=== PATIENT | female | born 1960 | race Caucasian/White ===

== ENCOUNTER 2020-04-30 12:23 | Emergency (ER) | payer OTHER ==
--- OUTSIDE RECORDS SUMMARY | 2020-04-30 13:00 | XMS REPORT | Clinical Summary ---
:1960 Author Organization [facility] Address [address] [place] [address] Care Team Providers Name Role Phone Darek Alves Primary Care Provider Allergies Active Allergy Reactions Severity Noted Date Comments Celecoxib 09/27/2016 Iodine 11/15/2017 Medications Medication Sig Dispensed Refills Start Date End Date Status valGANciclovir Take 450 mg 0 Act zarina (VALCYTE) 450 mg by mouth tablet daily. diphenhydrAMINE Take 2 2 capsule 0 11/15/2017 Act zarina (BENADRYL) 25 mg tablets of 25 capsuleIndications: mg 2 hours Allergy to iodine prior to imaging RED YEAST RICE ORAL Take by 0 Active mouth. aspirin (ECOTRIN) 81 Take 81 mg by 0 Active MG enteric coated mouth daily. tablet ACETAMINOPHEN/DIPHEN Take by 0 Active HYDRAMINE (TYLENOL mouth. PM EXTRA STRENGTH ORAL) levothyroxine Take 150 mcg 0 Act zarina (SYNTHROID, LEVOXYL) by mouth 150 mcg tablet every morning. traMADol (ULTRAM) 50 Take 50 mg by 0 Active mg tablet mouth every 6 (six) hours as needed for moderate pain. clopidogrel (PLAVIX) 0 07/25/2016 Active 75 mg/5 mL suspension clopidogreL (PLAVIX) Take 1 tablet 90 tablet 3 01/01/202012/16 Active 75 mg (75 mg total) 21 tabletIndications: by mouth PAD (peripheral daily. artery disease) ([facility]) calcium Take 1 tablet 0 05/22/20 Discon tinued citrate-vitamin D3 by mouth 2 19 (Patient (CITRACAL+D) 315-200 (two) times a Discharge) mg-unit per tablet day. Active Problems Problem Noted Date PAD (peripheral artery disease) 11/23/2017 Overview: Added automatically from request for lucy waldron [id number] Encounters Date Type Specialty Care Team Description 03/03/2020 Telephone Cardiovascular Gavi Fletcher MA 03/03/2020 Travel 01/01/2020 Telephone Cardiovascular Luciana Hoskins RN 01/01/2020 Orders Only Cardiovascular Luciana Hoskins, PAD (p eripheral artery RN disease) ([facility]) (Primary Dx) 11/04/2019 Telephone Cardiovascular Kacie Amin MA 11/04/2019 Telephone Cardiovascular Luciana Hoskins RN 05/22/2019 Office Visit Cardiovascular Roxana Silveira MD Varicose vei ns of bilateral lower extremities with other complications (Primary Dx); PAD (peripheral artery disease) ([facility]) after 04/30/2019 Family History Medical History Relation Name Comments Diabetes Mother Kari Berman Relation Name Status Comments Mother Kari Berman Alive Social History Tobacco Use Types Packs/Day Years Used Date Former Smoker 0.5 25 Quit: 2014 Smokeless Tobacco: Never Used Alcohol Use Drinks/Week oz/Week Comments Yes social Sex Assigned at Date Recorded Not on file Job Start Date Occupation Industry Not on file Not on file Not on file Travel History Travel Start Travel End No recent travel history available. Last Filed Vital Signs Vital Sign Reading Time Taken Comments Blood Pressure 147/84 05/22/2019 9:13 AM CDT Pulse 63 05/22/2019 9:13 AM CDT Temperature 36.6 C (97.8 F) 05/22/2019 9:13 AM CDT Respiratory Rate - - Oxygen Saturation - - Inhaled Oxygen Concentration - - Weight 98 kg (216 lb) 05/22/2019 9:13 AM CDT Height 170.2 cm (5' 7") 05/22/2019 9:13 AM CDT Body Mass Index 33.83 05/22/2019 9:13 AM CDT Plan of Treatment Date Type Specialty Care Team Description 05/13/2020 Appointment Procedural Cardiology Roxana Silveira MD [address] [place], [place] [address] [phone] 05/13/2020 Office Visit Cardiovascular Roxana Silveira MD [address] [place], [place] [address] [phone] Health Maintenance Due Date Last Done Comments CERVICAL CANCER SCREENING 1980 BREAST CANCER SCREENING 2009 COLONOSCOPY SCREENING 2009 SHINGLES VACCINES (#1) 2009 INFLUENZA VACCINE 05/18/2020 Implants Implanted Type Area Qa Software Tester Device Shelf Model / Identifier Expiration Serial / Date Lot Device Vasclr Clsr Baln Cath 10ml Lkng Syr 6fr 7fr Myn xgrip - [id number] Cardiovascular N/A: CARDINAL 10/17/2019 [id number] / Implanted: Qty: 1 on 11/28/2017 by Roxana Silveira MD at [facility] Implants N/A HEALTHCARE / [id number] Device Vasclr Clsr Baln Cath 10ml Lkng Syr 6fr 7fr Myn xgrip - [id number] Cardiovascular N/A: CARDINAL 09/16/2019 [id number] / Implanted: 04/03/2018 at [facility] (Quantity not on file) Imp lants N/A HEALTHCARE / [id number] Stent Bili Express Ld Prmntd 75cm 8x27mm Metal - [id number] Tammy pheral or N/A: [facility] 06/28/2020 [id number] / Implanted: Qty: 1 on 11/28/2017 by Roxnaa Silveira MD at [facility] Biliary Stents N/A INTERVENTION / VASCULAR LUCY [id number] Catheter Angio Type Caster Ii 5fr 0.038in 65cm Hf Contra-L - [id number] Surgical N/A: [facility] 07/17/2019 [id number] / Implanted: 11/28/2017 at [facility] (Quantity not on file) Imp lants; N/A INTERVENTION / Expanders; VASCULAR LUCY [id number] Extenders; Surgical Wires Stent Zilver Drug Eluted 6fr 8 X 60mm .035in - [id number] Surgic al Stents N/A: [facility] PERIPHERAL 06/04/2019 [id number] / Implanted: Qty: 1 on 04/03/2018 by Roxana Silveira MD at [facility] N/A INTERVENTION / [id number] Catheter Loss Claim Clerk [place] 6fr X 75cm 8x40mm 0.035in H-Pres [place] [id number] / Implanted: Qty: 1 on 04/03/2018 by Roxana Silveira MD at [facility] SCIENTIFIC/TAMMY / PHERAL VASCULAR (MEDI-TECH) Procedures Procedure Name Priority Date/Time Associated Diagnosis Comme nts US DUPLEX VENOUS Routine 07/03/2019 9:32 Varicose veins of Re sults for this LOWER EXTREMITY AM CDT bilateral lower procedure are in REFLUX BILATERAL extremities with other t he results complications section. US ANKLE BRACHIAL Routine 05/22/2019 9:22 PAD (peripheral art claudia Results for this INDEX AM CDT disease) ([facility]) procedure are in the results section. US DUPLEX AORTA Routine 05/22/2019 9:22 PAD (peripheral arter y Results for this INFERIOR VENA CAVA AM CDT disease) ([facility]) procedu re are in LIMITED the results section. after 04/30/2019 Results Us duplex venous lower extremity reflux (07/03/2019 9:32 AM CDT) Specimen Narrative Performed At [facility] Lower Extremity Toni ous Insufficiency Report [address], [address], [place] [address] Pat.Name: LONG VALENTINO Pat.ID: [id number] .Date: 07/03/2019 Refer.MD: ROXANA SILVEIRA MD Exam Time: 7:54:00 AM Study Type:V enous Reflux Report Age: 10 1960,58Y Sex: FEMALE Sonogrphr: Gela Arrington RN, RVT Echo Event ID:[id number] Order ID: [id number] Reason for Study:Bilateral lower extremi ty small reticular veins proximal posterior calf and at right med ial ankle area. Legs hurt all the time per pt. Ankle edema on and off. Has used compression but not worn consistently as they do not fit pro perly per pt. Race: C SUMMARY: DUPLEX SCAN OBSERVATIONS The exam was performed with the patient in the steep reverse Trendelenburg position. Hope scale and color Doppler imaging of bilateral lower extremities demonstrates the following: Deep Veins Right Left Valvular reflux CFV Incompetent Competent Normal < or equal to 500 (1500 ms) Abno rmal (Incompetent) 500 ms Femoral mid Competent Competent Profunda Competent Competent Popliteal Competent Competent PT (prox) Competent Competent PT (dist) Competent Competent Peroneal Competent Competent Superficial Veins AAV Competent Compe tent GSV Competent Inc ompetent (at and immediately below the saphenofem oral junction) (0000 ms) (500 ms) GSV Competent Incom petent (thigh) (500 ms) GSV Incompetent Incomp etent (lower leg) (500 ms) (1200 ms) SSV Incompetent Incomp etent (at and immediately below the saphenopop liteal junction) (5900 ms) (600 ms) RIGHT: There are bright echoes in the small saphenous vein in the upper calf partially filling the lumen; there is near-total compressibility (<50% luminal filling). The remaining above visualized veins are compressible with n o evidence of echogenic material within the vein lumen. Color flow and Doppler signals demonstrate valvular reflux in the commo n femoral and mid calf great and small saphenou vein. Saphenous relat ed varicosities are not identified. Perforating veins are not seen. LEFT: There are bright echoes in the small saphenous vein in the upper calf partially filling the lumen; there is near-total compressibility (<50% luminal filling). The remaining above visualized veins are compressible with no evidence of echogenic material within the vein lumen. Colorflow and Doppler si gnals demonstrate valvular reflux in the great saphenous vein at th e sapheno-femoral junction and just below the junction and in the mid c leobardo great and small saphenous vein. Non-thrombosed saphenous related varicosities are not identified. Perforating veins are not se en. PRELIMINARY FINDINGS: 1. 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 2. Valvular reflux, right common femor al and great saphenous (below) knee vein. 3. Valvular reflux, left great sapheno us vein at and just below the sapheno-femroal junction, and mid calf g reat and small saphenous vein. 4. Doppler signals obtained in the bi lateral common femoral vein are mildly pulsatile on the right compared t o the left. 5. See table and diagram for vein kym urements. PHYSICIAN INTERPRETATION: Chronic partial thrombosis of the proxim al calf small saphenous vein bilaterally. Venous reflux in bilateral lower extremity veins. Vein measurements as shown. FINDINGS: MEASUREMENTS: REFLUX Left CFV CFV Reflux Time 0.5 sec Right CFV CFV Reflux Time 1.5 sec ZULEIMAEINAlfred Left Prox Thigh Prox Thigh GSV 0.5 cm Right Prox Thigh Prox Thigh GSV 0.5 cm Left Distal Calf SSV Dist Calf LSV A 0.3 cm Right Calf Dist SSV Dist Calf LSV A 0.2 cm Left Mid Calf Mid Calf GSV AP 0.3 cm Mid Calf LSV AP 0.2 cm Right Mid Calf Mid Calf GSV AP 0.2 cm Mid Calf LSV AP 0.3 cm Left Mid Thigh Mid Thigh GSV A 0.4 cm Right Mid Thigh Mid Thigh GSV A 0.3 cm Left Popliteal Fossa Popliteal Fossa 0.5 cm Right Popliteal Fossa Popliteal Fossa 0.4 cm Left Knee Knee GSV AP 0.2 cm Right Knee Knee GSV AP 0.2 cm Left Prox Calf Prox Calf LSV A 0.2 cm Prox Calf GSV A 0.3 cm Right Prox Calf Prox Calf LSV A 0.2 cm Prox Calf GSV A 0.2 cm Left Dist Thigh Dist Thigh GSV 0.2 cm Right Dist Thigh Dist Thigh GSV 0.2 cm Left Dist Calf Dist Calf GSV A 0.2 cm Right Dist Calf Dist Calf GSV A 0.2 cm Left SFJ SFJ GSV AP 0.6 cm Right SFJ SFJ GSV AP 0.6 cm Signed 07/10/2019 09:16 PM Navjot Vera MD Procedure Note Interface, Radiology Results In - 2018 9:17 PM CDT [facility] Lower Extremity Venous Ins ufficiency Report [address], [address], [place] [address] Pat.Name: LONG VALENTINO Pat.I D: [id number] .Date: 07/03/2019 Refer .MD: ROXANA SILVEIRA MD Exam Time: 7:54:00 AM Study Type:Venous Reflux Report Age: 10 1960,58Y Sex: FEMALE Sonogrphr: Gela Arrington RN, RVT Echo Event ID:[id number] Order ID: [id number] Reason for Study:Bilateral lower extremi ty small reticular veins proximal posterior calf and at right med ial ankle area. Legs hurt all the time per pt. Ankle edema on and off. Has used compression but not worn consistently as they do not fit pro perly per pt. Race: C SUMMARY: DUPLEX SCAN OBSERVATIONS The exam was performed with the patient in the steep reverse Trendelenburg position. Hope scale and color Doppler imaging of bilateral lower extremities demonstrates the following: Deep Veins Right Left Valvular reflux CFV Incompetent Competent Normal < or equal to 500 (1500 ms) Abn ormal (Incompetent) 500 ms Femoral mid Competent Competent Profunda Competent Competent Popliteal Competent Competent PT (prox) Competent Competent PT (dist) Competent Competent Peroneal Competent Competent Superficial V eins AAV Competent Competent GSV Competent Incompetent (at and immediately below the saphenofem oral junction) (0000 ms) (500 ms) GSV Competent Incompetent (thigh) (500 ms) GSV Incompetent Incompetent (lower leg) (500 ms) (12 00 ms) SSV Incompetent Incompetent (at and immediately below the saphenopop liteal junction) (5900 ms) (600 ms) RIGHT: There are bright echoes in the s mall saphenous vein in the upper calf partially filling the lumen; there is near-total compressibility (<50% luminal filling). The remaining above visualized veins are compressible with n o evidence of echogenic material within the vein lumen. Colorf low and Doppler signals demonstrate valvular reflux in the commo n femoral and mid calf great and small saphenou vein. Saphenous relat ed varicosities are not identified. Perforating veins are not s een. LEFT: There are bright echoes in the s mall saphenous vein in the upper calf partially filling the lumen; there is near-total compressibility (<50% luminal filling). The remaining above visualized veins are compressible with no evidence of echogenic material within the vein lumen. Colorflow and Doppler si gnals demonstrate valvular reflux in the great saphenous vein at th e sapheno-femoral junction and just below the junction and in the mid c leobardo great and small saphenous vein. Non-thrombosed saphenous related varicosities are not identified. Perforating veins are not se en. PRELIMINARY FINDINGS: 1. Chronic partial thrombosis of the pr oximal calf small saphenous vein bilaterally. 2. Valvular reflux, right common femora l and great saphenous (below) knee vein. 3. Valvular reflux, left great saphenou s vein at and just below the sapheno-femroal junction, and mid calf g reat and small saphenous vein. 4. Doppler signals obtained in the alesia ateral common femoral vein are mildly pulsatile on the right compared t o the left. 5. See table and diagram for vein measu rements. PHYSICIAN INTERPRETATION: Chronic partial thrombosis of the proxim al calf small saphenous vein bilaterally. Venous reflux in bilateral lower extremity veins. Vein measurements as shown. FINDINGS: MEASUREMENTS: REFLUX Left CFV CFV Reflux Time 0.5 sec Right CFV CFV Reflux Time 1.5 sec LEVEINS Left Prox Thigh Prox Thigh GSV 0.5 cm Right Prox Thigh Prox Thigh GSV 0.5 cm Left Distal Calf SSV Dist Calf LSV A 0.3 cm Right Calf Dist SSV Dist Calf LSV A 0.2 cm Left Mid Calf Mid Calf GSV AP 0.3 cm Mid Calf LSV AP 0.2 cm Right Mid Calf Mid Calf GSV AP 0.2 cm Mid Calf LSV AP 0.3 cm Left Mid Thigh Mid Thigh GSV A 0.4 cm Right Mid Thigh Mid Thigh GSV A 0.3 cm Left Popliteal Fossa Popliteal Fossa 0.5 cm Right Popliteal Fossa Popliteal Fossa 0.4 cm Left Knee Knee GSV AP 0.2 cm Right Knee Knee GSV AP 0.2 cm Left Prox Calf Prox Calf LSV A 0.2 cm Prox Calf GSV A 0.3 cm Right Prox Calf Prox Calf LSV A 0.2 cm Prox Calf GSV A 0.2 cm Left Dist Thigh Dist Thigh GSV 0.2 cm Right Dist Thigh Dist Thigh GSV 0.2 cm Left Dist Calf Dist Calf GSV A 0.2 cm Right Dist Calf Dist Calf GSV A 0.2 cm Left SFJ SFJ GSV AP 0.6 cm Right SFJ SFJ GSV AP 0.6 cm Signed 07/10/2019 09:16 PM Navjot Vera MD Performing Organization Address City/State/Zipcode Phone Number [facility] [address] duplex aorta or inferior vena cava limited (05/22/2019 9:22 AM CDT) Specimen Narrative Performed At [facility] Duplex Report [address] [id number] Pat.Name: LONG VALENTINO Pat.ID: [id number] .Date: 05/22/2019 Refer.MD: ROXANA SILVEIRA MD Exam Time: 8:16:00 AM Study Type:A bd. Aorta-Iliac Age: 10 1960,58Y Sex: FEMALE Sonogrphr: Maria Isabel Murphy RVT CPT - 4: 939 79 Echo Event ID:[id number] Order ID: [id number] Reason for Study:Follow up status post P TA and stenting of iliac arteries. Race: C SUMMARY: AORTA: The abdominal aorta and iliac a rteries are visualized with difficulty due to overlying bowel gas. The aorta measures approximately 2.6 x 2.5 cm diameter. H austen plaque is noted. Color flow and Doppler signals are present thr oughout all visualized arteries. The celiac, sma, and hypogastr ic arteries are not visualized at this time. Color flow disturbance and elevated velocities are noted in the right external iliac artery. A st ent is visualized in the right common iliac and external iliac arteries and left mid external iliac artery. Unable to identify stent in the proximal and distal segment of left external iliac artery. PSV cm/sec Artery Location Aorta Proximal 96 Mid 74 Distal 74 Celiac Proximal Not Visualized SMA Proximal Not Visualized Right Left Common iliac Proximal 160 (STENT) 141 Mid 150 (STENT) 155 Distal 200 (STENT) 216 External iliac Proximal 323 (STENT) 203 Mid 178 (STENT) 167 (STENT) Distal 151 (STENT) 194 Hypogastric Proximal Not Visualized Not Visualized Patient seen in clinic today by Dr. Silveira. IMPRESSION: 1. The abdominal aorta measures appro ximately 2.6 x 2.5 cm diameter 2. >50% stenosis in the right proxima l external iliac artery stent (ratio 1.6) 3. < 50% stenosis in the left distal co mmon iliac artery (ratio 1.4) 4. See same day DONNIE/TBI 5. Technically difficult study due to o verlying bowel gas. PHYSICIAN INTERPRETATION: 1. The abdominal aorta measures appro ximately 2.6 x 2.5 cm diameter 2. >50% stenosis in the right proxima l external iliac artery stent (ratio 1.6) 3. < 50% stenosis in the left distal co mmon iliac artery (ratio 1.4) Signed 05/23/2019 11:27 PM Roxana Silveira MD Procedure Note Interface, Radiology Results In - 2018 11:32 PM CDT [facility] Aorta-iliac Duplex Report [address], [place] [address] Pat.Name: LONG VALENTINO Pat.I D: [id number] .Date: 05/22/2019 Refer .MD: ROXANA SILVEIRA MD Exam Time: 8:16:00 AM Study Type:Abd. Aorta-Iliac Age: 10 1960,58Y Sex: FEMALE Sonogrphr: Maria Isabel Murphy RVT CPT - 4: 11984 Echo Event ID:[id number] Order ID: [id number] Reason for Study:Follow up status post P TA and stenting of iliac arteries. Race: C SUMMARY: AORTA: The abdominal aorta and iliac ar teries are visualized with difficulty due to overlying bowel gas. The aorta measures approximately 2.6 x 2.[address] plaque is noted. Color flow and Doppler signals are present thr oughout all visualized arteries. The celiac, sma, and hypogastr ic arteries are not visualized at this time. Color flow disturbance and elevated velocities are noted in the right external iliac artery. A st ent is visualized in the right common iliac and external iliac arteries and left mid external iliac artery. Unable to identify stent in the proximal and distal segment of left external iliac artery. PSV cm/sec Artery Location Aorta Proximal 96 Mid 74 Distal 74 Celiac Proximal Not Visualized SMA Proximal Not Visualized Right Left Common iliac Proximal 160 (STENT) 14 1 Mid 150 (STENT) 155 Distal 200 (STENT) 216 External iliac Proximal 323 (STENT) 203 Mid 178 (STENT) 167 (STENT) Distal 151 (STENT) 194 Hypogastric Proximal Not Visualized Not Visualized Patient seen in clinic today by Dr. Silveira. IMPRESSION: 1. The abdominal aorta measures approx imately 2.6 x 2.5 cm diameter 2. >50% stenosis in the right proximal external iliac artery stent (ratio 1.6) 3. < 50% stenosis in the left distal co mmon iliac artery (ratio 1.4) 4. See same day DONNIE/TBI 5. Technically difficult study due to o verlying bowel gas. PHYSICIAN INTERPRETATION: 1. The abdominal aorta measures approx imately 2.6 x 2.5 cm diameter 2. >50% stenosis in the right proximal external iliac artery stent (ratio 1.6) 3. < 50% stenosis in the left distal co mmon iliac artery (ratio 1.4) Signed 05/23/2019 11:27 PM Roxana Silveira MD Performing Organization Address City/State/Zipcode Phone Number [facility] [address] [phone] ankle brachial index (05/22/2019 9:22 AM CDT) Specimen Narrative Performed At [facility] Lower Extremity Art erial Physiologic Report [address] [id number] Pat.Name: LONG VALENTINO Pat.ID: [id number] .Date: 05/22/2019 Refer.MD: ROXANA SILVEIRA MD Exam Time: 8:45:00 AM Study Type:P hysiologic Leg Age: 10 1960,58Y Sex: FEMALE Sonogrphr: Maria Isabel Murphy RVT CPT - 4: 939 22 Echo Event ID:[id number] Order ID: [id number] Reason for Study:Follow up status post P TA and stenting of iliac arteries. Race: C SUMMARY: DOPPLER SIGNALS / ANALOG WAVEFORMS: ANALOG WAVEFORMS ARTERY RIGHT LEFT Posterior Tibial Triphasic Triphasic Dorsalis Pedis Triphasic Triphasic Patient seen in clinic today by Dr. Silveira. PRELIMINARY FINDINGS: 1. Resting ankle brachial indices sug gest mild lower extremity arterial occlusive disease, bilaterally. 2. Toe brachial index suggests normal arterial perfusion, bilaterally. 3. In comparison to study done 11/21/18 A BIs changed from normal to mild arterial disease. 4. See same day aorta duplex PHYSICIAN INTERPRETATION: 1. Resting ankle brachial indices sug gest mild lower extremity arterial occlusive disease, bilaterally. 2. Toe brachial index suggests normal arterial perfusion, bilaterally. 3. In comparison to study done 11/21/18 A BIs changed from normal to mild arterial disease. MEASUREMENTS: PRESSURES Right Brachial Brach P 153 mmHg Left Brachial Brach P 157 mmHg Right Ankle PT AnklePT P 146 mmHg Left Ankle PT AnklePT P 146 mmHg Right Ankle DP AnkleDP P 139 mmHg Left Ankle DP AnkleDP P 151 mmHg Right Great Toe GreatToe P 126 mmHg Left Great Toe GreatToe P 100 mmHg Right DONNIE PT DONNIE PT 0.93 Left DONNIE PT DONNIE PT 0.93 Right DONNIE DP DONNIE DP 0.885 Left DONNIE DP DONNIE DP 0.962 Right TBI TBI 0.803 Left TBI TBI 0.637 Signed 05/22/2019 11:29 PM Roxana Silveira MD Procedure Note Interface, Radiology Results In - 2018 11:51 PM CDT [facility] Lower Extremity Arterial P hysiologic Report [address] [id number] Pat.Name: LONG VALENTINO Pat.I D: [id number] .Date: 05/22/2019 Refer .MD: ROXANA SILVEIRA MD Exam Time: 8:45:00 AM Study Type:Physiologic Leg Age: 10 1960,58Y Sex: FEMALE Sonogrphr: Maria Isabel Murphy RVT CPT - 4: 69914 Echo Event ID:[id number] Order ID: [id number] Reason for Study:Follow up status post P TA and stenting of iliac arteries. Race: C SUMMARY: DOPPLER SIGNALS / ANALOG WAVEFORMS: ANALOG WAVEFORMS ARTERY RIGHT LEFT Posterior Tibial Triphasic Triphasic Dorsalis Pedis Triphasic Triphasic Patient seen in clinic today by Dr. Silveira. PRELIMINARY FINDINGS: 1. Resting ankle brachial indices sugg est mild lower extremity arterial occlusive disease, bilaterally. 2. Toe brachial index suggests normal arterial perfusion, bilaterally. 3. In comparison to study done 11/21/18 A BIs changed from normal to mild arterial disease. 4. See same day aorta duplex PHYSICIAN INTERPRETATION: 1. Resting ankle brachial indices sugg est mild lower extremity arterial occlusive disease, bilaterally. 2. Toe brachial index suggests normal arterial perfusion, bilaterally. 3. In comparison to study done 11/21/18 A BIs changed from normal to mild arterial disease. MEASUREMENTS: PRESSURES Right Brachial Brach P 153 mmHg Left Brachial Brach P 157 mmHg Right Ankle PT AnklePT P 146 mmHg Left Ankle PT AnklePT P 146 mmHg Right Ankle DP AnkleDP P 139 mmHg Left Ankle DP AnkleDP P 151 mmHg Right Great Toe GreatToe P 126 mmHg Left Great Toe GreatToe P 100 mmHg Right DONNIE PT DONNIE PT 0.93 Left DONNIE PT DONNIE PT 0.93 Right DONNIE DP DONNIE DP 0.885 Left DONNIE DP DONNIE DP 0.962 Right TBI TBI 0.803 Left TBI TBI 0.637 Signed 05/22/2019 11:29 PM Roxana Silveira MD Performing Organization Address City/State[facility] Phone Number [facility] [address] [place] [address] after 04/30/2019 ([place]) [place], [place] [address] 1 Advance Directives For more information, please contact: [phone] Type Date Recorded Patient Coal Sample Tester Explanati on Advance Directives, Living Will and Medical Power of Kitchen Aide
[2020-04-30] MEDS ORDERED: HYDROCODONE/APAP 10/325 TAB ONE (14:07)
--- NOTE | 2020-04-30 14:27 | RAD REPORT ---
EXAM DESCRIPTION: US - Extrem Venous W Compress Davidson - 04/30/2020 2:19 pm CLINICAL HISTORY: PAIN Bilateral leg edema and swelling. COMPARISON: UP LOW EXT ARTERIES MULTI dated 12/08/2013 TECHNIQUE: Real-time sonographic interrogation of the left and right lower extremity deep venous sys tems was performed. FINDINGS: Normal compressibility, flow augmentation, phasic flow and spontaneous flow is identified in both the left and right lower extremity deep venous systems. IMPRESSION: No sonographic evidence of left or right lower extremity deep venous thrombosis.
--- NOTE | 2020-04-30 14:42 | RAD REPORT ---
EXAM DESCRIPTION: US - Lower Extremity Arterial Bilat - 04/30/2020 2:19 pm CLINICAL HISTORY: PAIN Leg pain, claudication COMPARISON: No comparisons TECHNIQUE: Bilateral lower extremity arterial Doppler examination was performed with petey berman FINDINGS: Mild multifocal multisegmental atherosclerosis is present bilaterally. Triphasic waveforms are seen throughout both lower extremity arterial systems to the level of the pos terior tibial arteries bilaterally. Bilateral dorsalis pedis artery is demonstrates monophasic flow which appears mildly blunted. No occlusion or high-grade stenosis evident. IMPRESSION: Mild distal peripheral vascular disease below the level of the ankles. No occlusion identified.
--- NOTE | 2020-04-30 16:22 | EDPHYS ---
Physician Documentation [facility] Name: Serina Valentino Age: 59 yrs Sex: Female : 1960 Arrival Date: 04/30/2020 Time: 12:26 Bed 20 Private MD: Raian Alves H ED Physician Daniel Scott HPI: 04/30 18:56 This 59 yrs old Female presents to ER via Ambulatory with complaints of kdr Possible blood clot. 18:56 The patient presents with pain, that is chronic. The patient has multiple discrete kdr locations on her lower extremities which she reports are tender and swollen. She si concerned that she may have blood clots in he legs. She has had prior arterial stenting in her legs. She had seen Dr. Alves last week and he had given her Lasix which has not resolved the issues. She has no other c/o in the ED. Historical: - Allergies: 12:35 thyroid med; jd3 12:35 Celebrex; jd3 - Home Meds: 12:35 levothyroxine oral [Active]; clopidogrel oral oral [Active]; Aspirin Oral [Active]; red jd3 yeast rice oral oral [Active]; - PSHx: 12:35 stents to bilateral femoral arteries; angioplasty to left leg; jd3 - Immunization history:: Adult Immunizations up to date. - Social history:: Smoking status: Patient/guardian denies using tobacco, the patient reports quitting approximately 2 years ago. ROS: 18:56 Constitutional: Negative for fever, chills, and weight loss, Eyes: Negative for injury, kdr pain, redness, and discharge, ENT: Negative for injury, pain, and discharge, Neck: Negative for injury, pain, and swelling, Cardiovascular: Negative for chest pain, palpitations, and edema, Respiratory: Negative for shortness of breath, cough, wheezing, and pleuritic chest pain, Abdomen/GI: Negative for abdominal pain, nausea, vomiting, diarrhea, and constipation, Back: Negative for injury and pain, : Negative for injury, bleeding, discharge, and swelling, Skin: Negative for injury, rash, and discoloration, Neuro: Negative for headache, weakness, numbness, tingling, and seizure activity. Psych: Negative for depression, anxiety, suicide ideation, homicidal ideation, and hallucinations, Allergy/Immunology: Negative for hives, rash, and allergies, Endocrine: Negative for neck swelling, polydipsia, polyuria, polyphagia, and marked weight changes, Hematologic/Lymphatic: Negative for swollen nodes, abnormal bleeding, and unusual bruising. 18:56 MS/extremity: Positive for pain, Multiple tender and slightly swollen areas without obvious reason or other associated problem or cause. Minimal if any discoloration. Exam: 18:56 Constitutional: This is a well developed, well nourished patient who is awake, alert, kdr and in no acute distress. Head/Face: Normocephalic, atraumatic. Eyes: Pupils equal round and reactive to light, extra-ocular motions intact. Lids and lashes normal. Conjunctiva and sclera are non-icteric and not injected. Cornea within normal limits. Periorbital areas with no swelling, redness, or edema. Neck: Trachea midline, no thyromegaly or masses palpated, and no cervical lymphadenopathy. Supple, full range of motion without nuchal rigidity, or vertebral point tenderness. No Meningismus. Chest/axilla: Normal chest wall appearance and motion. Nontender with no deformity. No lesions are appreciated. Cardiovascular: Regular rate and rhythm with a normal S1 and S2. No gallops, murmurs, or rubs. Normal PMI, no JVD. No pulse deficits. Respiratory: Lungs have equal breath sounds bilaterally, clear to auscultation and percussion. No rales, rhonchi or wheezes noted. No increased work of breathing, no retractions or nasal flaring. Abdomen/GI: Soft, non-tender, with normal bowel sounds. No distension or tympany. No guarding or rebound. No evidence of tenderness throughout. Back: No spinal tenderness. No costovertebral tenderness. Full range of motion. Skin: Warm, dry with normal turgor. Normal color with no rashes, no lesions, and no evidence of cellulitis. Neuro: Awake and alert, GCS 15, oriented to person, place, time, and situation. Cranial nerves II-XII grossly intact. Motor strength 5/5 in all extremities. Sensory grossly intact. Cerebellar exam normal. Normal gait. Psych: Awake, alert, with orientation to person, place and time. Behavior, mood, and affect are within normal limits. 18:56 Skin: Appearance: swelling, that are mild, left lateral ankle. Otherwise difficult to appreciate the lesions that the patient is c/o. Vital Signs: 12:35 BP 160 / 90; Pulse 88; Resp 18 S; Temp 97.0(TE); Pulse Ox 96% on R/A; Weight 97.52 kg jd3 (R); Height 5 ft. 7 in. (170.18 cm) (R); Pain 7/10; 14:00 BP 152 / 87; Pulse 71; Resp 18; Pulse Ox 98% on R/A; ph 16:53 BP 147 / 86; Pulse 76; Resp 19; Temp 97.8; Pulse Ox 99% on R/A; ph 12:35 Body Mass Index 33.67 (97.52 kg, 170.18 cm) jd3 MDM: 16:21 Patient medically screened. kdr 18:56 Data reviewed: vital signs, nurses notes, lab test result(s), radiologic studies. kdr Counseling: I had a detailed discussion with the patient and/or guardian regarding: the historical points, exam findings, and any diagnostic results supporting the discharge/admit diagnosis, lab results, radiology results, the need for outpatient follow up. Physician consultation: Raina Alves DO regarding patient's condition, outpatient follow-up, and will see patient in office, next week, would like medications started, Gabapentin. 04/30 13:44 Order name: Extremity Venous W Compression Davidson; Complete Time: 16:19 kdr 04/30 13:44 Order name: LE Arterial Bilateral; Complete Time: 16:19 kdr Administered Medications: 13:54 Drug: [place] 10 mg-325 mg 1 tabs {Note: rass 0.} Route: PO; ca1 15:47 Follow up: Response: No adverse reaction; Pain is unchanged, physician notified ph Disposition: 04/30/20 16:21 Discharged to Home. Impression: Abrasion, left ankle. - Condition is Stable. - Discharge Instructions: Pain Without a Known Cause, Neuropathic Pain. - Medication Reconciliation Form, Thank You Letter form. - Follow up: Raina Alves DO; When: 2 - 3 days; Reason: If symptoms return, Further diagnostic work-up, Recheck today's complaints, Continuance of care, Re-evaluation by your physician. - Problem is an ongoing problem. - Symptoms have improved. - Notes: Take 1/2 of the Gabapentin 600 mg tab (300mg) twice a day to strart for one week then take 600 mg twice a day. Follow-up with Dr. Alves early next week. Dr. Alves has called in this prescription to your pharmacy. Signatures: Dispatcher [employer] EDMS Daniel Scott MD MD kdr Jeannie Gregg RN RN ph Fernando Marti RN RN jd3 AcLinsey wells RN RN ca1 Corrections: (The following items were deleted from the chart) 16:53 16:21 04/30/2020 16:21 Discharged to Home. Impression: Abrasion, left ankle. Condition ph is Stable. Forms are Medication Reconciliation Form, Thank You Letter, Antibiotic Education, Prescription Opioid Use. Follow up: Raina Alves; When: 2 - 3 days; Reason: If symptoms return, Further diagnostic work-up, Recheck today's complaints, Continuance of care, Re-evaluation by your physician. Problem is an ongoing problem. Symptoms have improved. kdr
--- NOTE | 2020-04-30 16:22 | ER ---
Nurse's Notes [facility] Name: Serina Valentino Age: 59 yrs Sex: Female : 1960 Arrival Date: 04/30/2020 Time: 12:26 Bed 20 Private MD: Raina Alves H Diagnosis: Abrasion, left ankle Presentation: 04/30 12:31 Chief complaint: Patient states: "I think I am having blood clots in both my legs. my jd3 feet are swollen and really hurt as well. I have stents put in both of my femoral arteries and I think they both might be backed up.". Coronavirus screen: At this time, the client does not indicate any symptoms associated with coronavirus-19. Ebola Screen: Patient negative for fever greater than or equal to 101.5 degrees Fahrenheit, and additional compatible Ebola Virus Disease symptoms. Initial Sepsis Screen: Does the patient meet any 2 criteria? No. Patient's initial sepsis screen is negative. Does the patient have a suspected source of infection? No. Patient's initial sepsis screen is negative. Risk Assessment: Do you want to hurt yourself or someone else? Patient reports no desire to harm self or others. Onset of symptoms was April 30, 2020. 12:31 Method Of Arrival: Ambulatory jd3 12:31 Acuity: MAHESH 3 jd3 Historical: - Allergies: 12:35 thyroid med; jd3 12:35 Celebrex; jd3 - Home Meds: 12:35 levothyroxine oral [Active]; clopidogrel oral oral [Active]; Aspirin Oral [Active]; red jd3 yeast rice oral oral [Active]; - PSHx: 12:35 stents to bilateral femoral arteries; angioplasty to left leg; jd3 - Immunization history:: Adult Immunizations up to date. - Social history:: Smoking status: Patient/guardian denies using tobacco, the patient reports quitting approximately 2 years ago. Screenin:26 Abuse screen: Denies threats or abuse. Denies injuries from another. Nutritional ph screening: No deficits noted. Tuberculosis screening: No symptoms or risk factors identified. Fall Risk No fall in past 12 months (0 pts). No secondary diagnosis (0 pts). No IV (0 pts). Ambulatory Aid- Crutches/Cane/Walker (15 pts). Gait- Normal/Bed Rest/Wheelchair (0 pts) Mental Status- Oriented to own ability (0 pts). Total Crum Fall Scale indicates No Risk (0-24 pts). Assessment: 13:30 General: Appears in no apparent distress. comfortable, Behavior is calm, cooperative, ph appropriate for age, Denies fever, feeling ill. Pain: Complains of pain in right leg and left leg. Neuro: Level of Consciousness is awake, alert, obeys commands, Oriented to person, place, time, situation. Respiratory: Airway is patent Respiratory effort is even, unlabored, Respiratory pattern is regular, symmetrical. GI: No signs and/or symptoms were reported involving the gastrointestinal system. Derm: Skin is healthy with good turgor, Skin is pink, warm \\T\\ dry. Musculoskeletal: Circulation, motion, and sensation intact. Range of motion: intact in all extremities. 13:30 Cardiovascular: Capillary refill < 3 seconds in bilateral fingers Patient's skin is ph warm and dry. Edema is absent. 15:00 Reassessment: Patient appears in no apparent distress at this time. Patient and/or ph family updated on plan of care and expected duration. Pain level reassessed. Patient is alert, oriented x 3, equal unlabored respirations, skin warm/dry/pink. 16:50 Reassessment: Patient appears in no apparent distress at this time. Patient and/or ph family updated on plan of care and expected duration. Pain level reassessed. Patient is alert, oriented x 3, equal unlabored respirations, skin warm/dry/pink. Pt d/c home. Vital Signs: 12:35 BP 160 / 90; Pulse 88; Resp 18 S; Temp 97.0(TE); Pulse Ox 96% on R/A; Weight 97.52 kg jd3 (R); Height 5 ft. 7 in. (170.18 cm) (R); Pain 7/10; 14:00 BP 152 / 87; Pulse 71; Resp 18; Pulse Ox 98% on R/A; ph 16:53 BP 147 / 86; Pulse 76; Resp 19; Temp 97.8; Pulse Ox 99% on R/A; ph 12:35 Body Mass Index 33.67 (97.52 kg, 170.18 cm) jd3 ED Course: 12:26 Patient arrived in ED. mr 12:26 Raina Alves DO is Private Physician. mr 12:33 Triage completed. jd3 12:36 Arm band placed on. jd3 12:44 Daniel Scott MD is Attending Physician. kdr 12:53 Jeannie Gregg, RN is Primary Nurse. ph 14:19 US Extremity Venous W Compression Davidson In Process Unspecified. EDMS 14:19 US LE Arterial Bilateral In Process Unspecified. EDMS 15:28 Patient has correct armband on for positive identification. Bed in low position. Call ph light in reach. Side rails up X 1. Pulse ox on. NIBP on. Door closed. Noise minimized. Warm blanket given. 15:46 No provider procedures requiring assistance completed. ph 16:20 Raina Alves DO is Referral Physician. kdr 16:51 Patient did not have IV access during this emergency room visit. ph Administered Medications: 13:54 Drug: [place] 10 mg-325 mg 1 tabs {Note: rass 0.} Route: PO; ca1 15:47 Follow up: Response: No adverse reaction; Pain is unchanged, physician notified ph Outcome: 16:21 Discharge ordered by . kdr 16:50 Discharged to home ambulatory. ph 16:50 Condition: good 16:50 Discharge instructions given to patient, Instructed on discharge instructions, follow up and referral plans. Demonstrated understanding of instructions, follow-up care. 16:53 Patient left the ED. ph Signatures: Dispatcher [employer] EDVT Daniel Scott MD MD [facility] Stephanie Encarnacion mr Jeannie Gregg, RN RN ph Fernando Marti RN RN jLinsey Hawley RN RN ca1 Corrections: (The following items were deleted from the chart) 16:54 13:30 Cardiovascular: Capillary refill < 3 seconds in bilateral fingers toes Patient's ph skin is warm and dry. Edema is 2+ to left midcalf, left ankle, left foot, right midcalf, right ankle and right foot ph
[2020-04-30 17:09] VITALS: BP 147/86; TEMP 97.8; O2SAT 99
== END 2020-04-30 16:53 | disposition home or self-care (01) ==
LOC: ER 12:23
DX: S90.512A Abrasion, left ankle, initial encounter (principal); X58.XXXA Exposure to other specified factors, initial encounter; Z88.8 Allergy status to other drugs, medicaments and biological substances
CPT/HCPCS: 93925; 93970; 99283

== ENCOUNTER 2021-07-29 16:45 | Emergency (ER) | payer BC ==
[2021-07-29] MEDS ORDERED: FENTANYL CITR 100 MCG/2 ML ONE ×3 (17:17→21:33)
[2021-07-29] MEDS ORDERED: ONDANSETRON 4 MG/2 ML VIAL ONE (17:17)
--- NOTE | 2021-07-29 17:39 | RAD REPORT ---
EXAM DESCRIPTION: CT - Head C Spine Cap Wo Con - 07/29/2021 5:16 pm CLINICAL HISTORY: Trauma, head and neck injury. Chest, abdomen and pelvis pain. fall off deck;Pain COMPARISON: No comparisons TECHNIQUE: CT head without contrast. CT cervical spine without contrast with coronal and sagittal reformatted images. CT chest, abdomen and pelvis with coronal and sagittal reformatted images of the spine. All CT scans are performed using dose optimization technique as appropriate and may include automated exposure control or mA/KV adjustment according to patient size. FINDINGS: CT HEAD WITHOUT CONTRAST: No intracranial hemorrhage, hydrocephalus or extra-axial fluid collection. No acute large vascular te rritory infarct. The paranasal sinuses and mastoids are clear. The calvarium is intact. CT CERVICAL SPINE WITHOUT CONTRAST: No fracture or subluxation. The prevertebral soft tissues are normal in thickness.Multilevel cervical spondylosis with varying de grees of neural foraminal narrowing. CT CHEST, ABDOMEN, PELVIS: Thorax: Chest Wall: No abnormal mass Lungs: Paraseptal emphysema. Pleura: No effusions or pneumothorax. Rachel/Mediastinum: No lymphadenopathy. Aorta/Pulmonary Arteries: Unremarkable Heart: Normal size. Multi-vessel coronary artery disease. Abdomen/Pelvis: Liver: No acute abnormality or suspicious lesions. Biliary: No biliary ductal dilatation. Stomach: No significant focal abnormality. Duodenum: No significant focal abnormality. Pancreas: No significant abnormality. Spleen: No significant abnormality. Adrenal: No suspicious lesions. Kidney/ureter: No hydronephrosis. No renal calculi. Retroperitoneum: No retroperitoneal adenopathy. Vascular: Aorto bi-iliac stents Bowel: Diverticulosis without diverticulitis .. Peritoneum: No ascites or free air. Bladder: Grossly unremarkable. Reproductive: No adnexal masses. Bones: Comminuted right proximal humerus fracture. Right first, second, third rib fractures which are minimally displaced. Other: n/a IMPRESSION: 1. Comminuted right proximal humerus fracture and minimally displaced right 1st to 3rd r ib fractures. No pneumothorax . 2. No acute intracranial abnormality or evidence of cervical spine fracture. 3. No acute intra-abdominal abnormality.
--- NOTE | 2021-07-29 17:56 | RAD REPORT ---
EXAM DESCRIPTION: RAD - Clavicle Right - 07/29/2021 5:50 pm CLINICAL HISTORY: PAIN COMPARISON: Humerus Right dated 07/29/2021 FINDINGS: No right clavicle fracture. Comminuted right proximal humerus fracture IMPRESSION: No right clavicle fracture identified.
--- NOTE | 2021-07-29 17:57 | RAD REPORT ---
EXAM DESCRIPTION: RAD - Humerus Right - 07/29/2021 5:50 pm CLINICAL HISTORY: PAIN COMPARISON: No comparisons FINDINGS: Heavily comminuted fracture dislocation of the right proximal humerus. The distal fragment is displaced anteriorly. There is significant inferior displacement of of a large portion of the hum eral head. The greater tuberosity fragment is comminuted. IMPRESSION: Right proximal humeral fracture dislocation with comminution.
[2021-07-29 18:36] LABS: Absolute Lymphocytes (CBC) 1.7 K/uL (0.7-4.9); Basophils % 0.7 % (0-1.3); Hematocrit 39.4 % (36.0-45.0); Lymphocytes % 10.7 % (15.3-44.8); MPV 8.3 fL (7.6-11.3); RBC Red Blood Cell Count 4.11 M/uL (3.86-4.86)
--- NOTE | 2021-07-29 18:43 | EDPHYS ---
Physician Documentation [facility] Name: Seirna Valentino Age: 60 yrs Sex: Female : 1960 Arrival Date: 07/29/2021 Time: 16:46 Bed 8 Private MD: Raina Alves H ED Physician Daniel Scott HPI: 07/29 16:58 This 60 yrs old Female presents to ER via Unassigned with complaints of Fall cp Injury. 16:58 Details of fall: The patient fell from a height, outside deck approximately 1 foot off cp ground, from an upright position, while walking. Onset: The symptoms/episode began/occurred just prior to arrival. 16:58 Associated injuries: The patient sustained right shoulder, decreased range of motion, cp deformity, ecchymosis, painful injury. 16:58 Severity of symptoms: in the emergency department the symptoms are unchanged, despite cp EMS interventions. Historical: - Allergies: 17:13 Celebrex; tw2 19:32 Iodine; df1 - Home Meds: 19:32 aspirin 81 mg oral tab daily [Active]; clopidogrel 75 mg oral tab once daily [Active]; df1 levothyroxine 150 mcg oral tab 1 tab once daily [Active]; red yeast rice Oral [Active]; lisinopril 5 mg Oral tab 1 tab once daily [Active]; Mobic 15 mg oral tab 1 tab once daily [Active]; folic acid daily [Active]; Methotrexate (Anti-Rheumatic) 2.5 mg Oral tab 1 tab once wkly [Active]; acterexata 162 mg IM once per week [Active]; - PMHx: 17:13 RA; Femoral artery stents; tw2 19:32 Hypothyroidism; PVD; df1 - PSHx: 19:32 total Hysterectomy; Bilateral shoulder repair; Thyroidectomy; df1 - Immunization history:: Adult Immunizations. - Social history:: Smoking status: . ROS: 17:00 Constitutional: Negative for body aches, chills, fever, poor PO intake. cp 17:00 Eyes: Negative for injury, pain, redness, and discharge. cp 17:00 Neck: Positive for tenderness, bony tenderness. 17:00 Cardiovascular: Negative for chest pain, palpitations. 17:00 Respiratory: Negative for cough, shortness of breath, wheezing. 17:00 Abdomen/GI: Negative for abdominal pain, nausea, vomiting, and diarrhea. 17:00 MS/extremity: Positive for injury or acute deformity, decreased range of motion, of the right shoulder. 17:00 Neuro: Negative for altered mental status, loss of consciousness, seizure activity, syncope, weakness. 17:00 All other systems are negative. Exam: 17:05 Constitutional: The patient appears in no acute distress, alert, awake, cp non-diaphoretic, non-toxic, well developed, well nourished, obese, uncomfortable. 17:05 Head/Face: Normocephalic, atraumatic. cp 17:05 Eyes: Periorbital structures: appear normal, Pupils: equal, round, and reactive to light and accomodation, Extraocular movements: intact throughout, Conjunctiva: normal, no exudate, no injection, Sclera: no appreciated abnormality, Lids and lashes: appear normal, bilaterally. 17:05 ENT: External ear(s): are unremarkable, Nose: is normal, Mouth: Lips: moist, Oral mucosa: moist, Posterior pharynx: Airway: no evidence of obstruction, patent. 17:05 Neck: C-spine: vertebral tenderness, that is mild, appreciated at C6 and C7, crepitus, is not appreciated, ROM/movement: pain, is not appreciated, limited range of motion, is not appreciated, nuchal rigidity, is not appreciated. 17:05 Chest/axilla: Inspection: normal, Palpation: crepitus, is not appreciated, tenderness, that is moderate, of the right clavicle and anterior aspect of right upper chest. 17:05 Cardiovascular: Rate: normal, Rhythm: regular, Edema: is not appreciated, JVD: is not appreciated. 17:05 Respiratory: the patient does not display signs of respiratory distress, Respirations: normal, no use of accessory muscles, no retractions, labored breathing, is not present, Breath sounds: are clear throughout, no decreased breath sounds, no stridor, no wheezing. 17:05 Abdomen/GI: Inspection: abdomen appears normal, Bowel sounds: active, all quadrants, Palpation: abdomen is soft and non-tender, in all quadrants. 17:05 Back: pain, that is severe, of the right scapular area, ROM is painful, with all movement. 17:05 Musculoskeletal/extremity: Extremities: grossly normal except: noted in the right shoulder: decreased ROM, deformity, ecchymosis, pain, ROM: limited passive range of motion, in the right shoulder, Pulses: noted to be 2+ in the right radial artery and left radial artery, the right shoulder Severe pain noted. 17:05 Skin: injury, abrasion(s), small abrasion noted, of the right lower leg. 17:05 Neuro: Orientation: to person, place \T\ time. Mentation: is normal, Motor: moves all fours, Sensation: is normal. Vital Signs: 16:45 BP 107 / 66; Pulse 89; Resp 18; Temp 98.6(TE); Pulse Ox 95% on R/A; Weight 95.25 kg tw2 (R); Height 5 ft. 7 in. (170.18 cm) (R); Pain 10/10; 18:23 BP 107 / 79; Pulse 67; Resp 17; Pulse Ox 95% on R/A; tw2 18:30 Pain 10/10; tw2 18:30 BP 119 / 47; Pulse 73; Resp 18; Pulse Ox 95% on R/A; Pain 10/10; tw2 19:31 BP 114 / 54; Pulse 66; Resp 18; Pulse Ox 98% on R/A; df1 21:43 BP 114 / 60; Pulse 72; Resp 18; Pulse Ox 99% on R/A; df1 16:45 Body Mass Index 32.89 (95.25 kg, 170.18 cm) tw2 MDM: 16:55 Patient medically screened. cp 17:15 Differential diagnosis: closed head injury, contusion, fracture, multiple trauma. cp 18:40 Physician consultation: Dejon Granados MD was contacted at 18:40, regarding consult, cp patient's condition, after a discussion of the case, a recommendation for transfer for higher level of care is made, for right shoulder replacement surgery. 18:45 Data reviewed: vital signs, nurses notes, lab test result(s), radiologic studies, CT cp scan, plain films. 18:45 Test interpretation: by ED physician or midlevel provider: plain radiologic studies. cp Counseling: I had a detailed discussion with the patient and/or guardian regarding: the historical points, exam findings, and any diagnostic results supporting the discharge/admit diagnosis, lab results, radiology results, the need to transfer to another facility, for higher level of care. 07/29 16:58 Order name: Basic Metabolic Panel cp 07/29 16:58 Order name: CBC with Diff cp 07/29 18:13 Order name: Type and Screen Tube method EDIA 07/29 19:12 Order name: CBC Smear Scan EDIA 07/29 16:58 Order name: XRAY Humerus RIGHT; Complete Time: 18:02 cp 07/29 16:58 Order name: XRAY Clavicle RIGHT; Complete Time: 18:02 cp 07/29 17:07 Order name: Head C Spine Cap Wo Con; Complete Time: 17:56 EDMS 07/29 19:01 Order name: Wrist Left 3 View EDIA 07/29 19:35 Order name: SARS-COV-2 RT PCR EDIA 07/29 16:58 Order name: C-Collar; Complete Time: 16:59 tw2 07/29 16:58 Order name: Labs collected and sent; Complete Time: 20:51 cp 07/29 21:42 Order name: Hardin; Complete Time: 21:42 df1 Administered Medications: 18:15 Drug: Zofran (Ondansetron) 4 mg Route: IVP; Site: left hand; jl7 18:36 Follow up: Response: No adverse reaction tw2 18:17 Drug: fentaNYL (PF) 25 mcg Route: IVP; Site: left hand; jl7 18:30 Follow up: Pain 10/10 Adult; Response: No adverse reaction; Pain is unchanged, tw2 physician notified; RASS: Alert and Calm (0) 18:30 Drug: fentaNYL (PF) 25 mcg {Note: RASS 0.} Route: IVP; Site: left hand; tw2 20:51 Follow up: Response: Pain is decreased df1 19:58 Drug: NS 0.9% 500 ml Route: IV; Rate: bolus; Site: left hand; df1 20:50 Follow up: IV Status: Completed infusion; IV Intake: 500ml df1 20:31 Drug: fentaNYL (PF) 25 mcg Route: IVP; Site: left hand; kc4 20:50 Follow up: Response: Pain is decreased df1 21:30 Follow up: Response: No adverse reaction kc4 20:50 Drug: NS 0.9% 500 ml Route: IV; Rate: 100 ml/hr; Site: left hand; df1 21:48 Follow up: Response: No adverse reaction df1 21:36 Drug: fentaNYL (PF) 25 mcg {Note: Pain increasing, EMS at the bs for transport. 25mcg kc4 Fentanyl administered.} Route: IVP; Site: left hand; 21:47 Follow up: Response: Pain is decreased df1 Disposition Summary: 07/29/21 18:42 Transfer Ordered Transfer Location: [facility] cp Reason: Higher level of care cp Condition: Fair cp Problem: new cp Symptoms: have improved cp Accepting Physician: DR Mobley(07/29/21 21:49) df1 Diagnosis - Displaced Comminuted Fracture and Dislocation Right Proximal Humerus cp - Multiple fractures of ribs, right side, initial encounter for closed fracture cp Forms: - Medication Reconciliation Form cp - SBAR form cp Addendum: 07/31/2021 03:50 Co-signature as Attending Physician, Daniel Scott MD I agree with the assessment and k dr plan of care. Signatures: Dispatcher [employer] EDMS Daniel Scott MD MD [facility] Lazaro Alvarenga PA PA cp Ele Schmitt RN RN tw2 Amy Pacheco RN RN jl7 Alivia Gill kc4 Latia Iyer df1 Corrections: (The following items were deleted from the chart) 07/29 17:07 16:59 Head C Spine CAP W Con+CT.RAD.BRZ ordered. EDMS EDMS 18:13 16:58 TYPE AND SCREEN+BB.LAB.BRZ ordered. EDMS EDMS 19:01 17:58 Wrist Right 3 View+RAD.RAD.BRZ ordered. EDMS EDMS 19:35 19:11 CORONAVIRUS+MR.LAB.BRZ ordered. EDMS EDMS 19:38 17:13 Allergies: thyroid med; tw2 df1 19:38 19:32 Allergies: hypothyroid; df1 df1 19:59 18:42 Doctor cp cp 21:49 19:59 DR Mobley cp df1
--- NOTE | 2021-07-29 18:43 | ER ---
Nurse's Notes [facility] Name: Serina Valentino Age: 60 yrs Sex: Female : 1960 Arrival Date: 07/29/2021 Time: 16:46 Bed 8 Private MD: Raina Alves H Diagnosis: Displaced Comminuted Fracture and Dislocation Right Proximal Humerus;Multiple fractures of ribs, right side, initial encounter for closed fracture Presentation: 07/29 16:45 Chief complaint: EMS states: pt was at home working on a home project on a deck that tw2 was about a foot or foot an a half off the ground. pt landed all her weight on right elbow with possible dislocation noted. pt denies LOC. vs stable. Coronavirus screen: At this time, the client does not indicate any symptoms associated with coronavirus-19. Ebola Screen: Patient denies travel to an Ebola-affected area in the 21 days before illness onset. Initial Sepsis Screen: Does the patient meet any 2 criteria? No. Patient's initial sepsis screen is negative. Does the patient have a suspected source of infection? No. Patient's initial sepsis screen is negative. Risk Assessment: Do you want to hurt yourself or someone else? Patient reports no desire to harm self or others. Onset of symptoms was July 29, 2021. Care prior to arrival: temporary sling to RIGHT arm. 16:45 Method Of Arrival: EMS: [facility] tw2 16:45 Acuity: MAHESH 3 tw2 16:45 Note provider at bedside at this time. tw2 Triage Assessment: 16:45 General: Appears uncomfortable, well groomed, Behavior is calm, cooperative, tw2 appropriate for age. Pain: Complains of pain in right shoulder. Neuro: Level of Consciousness is awake, alert, obeys commands, Oriented to person, place, time, situation. Cardiovascular: Capillary refill < 3 seconds Patient's skin is warm and dry. Respiratory: Airway is patent Respiratory effort is even, unlabored, Respiratory pattern is regular, symmetrical. Musculoskeletal: Circulation, motion, and sensation intact. Range of motion: limited in right shoulder noted to right shoulder area. Historical: - Allergies: 17:13 Celebrex; tw2 19:32 Iodine; df1 - Home Meds: 19:32 aspirin 81 mg oral tab daily [Active]; clopidogrel 75 mg oral tab once daily [Active]; df1 levothyroxine 150 mcg oral tab 1 tab once daily [Active]; red yeast rice Oral [Active]; lisinopril 5 mg Oral tab 1 tab once daily [Active]; Mobic 15 mg oral tab 1 tab once daily [Active]; folic acid daily [Active]; Methotrexate (Anti-Rheumatic) 2.5 mg Oral tab 1 tab once wkly [Active]; acterexata 162 mg IM once per week [Active]; - PMHx: 17:13 RA; Femoral artery stents; tw2 19:32 Hypothyroidism; PVD; df1 - PSHx: 19:32 total Hysterectomy; Bilateral shoulder repair; Thyroidectomy; df1 - Immunization history:: Adult Immunizations. - Social history:: Smoking status: . Screenin:30 Abuse screen: Denies threats or abuse. Denies injuries from another. Nutritional jl7 screening: No deficits noted. Tuberculosis screening: No symptoms or risk factors identified. Fall Risk Fall in past 12 months (25 points). IV access (20 points). Total Crum Fall Scale indicates High Risk Score (45 or more points). Fall prevention measures have been instituted. Side Rails Up X 2 Placed Close to Nursing Station Frequent Obs/Assessments Occuring Family Present and informed to notify staff if the need to leave the bedside As available patient and family educated on Fall Prevention Program and Strategies. Assessment: 16:45 Reassessment: see triage assessment. tw2 17:20 Reassessment: pt in CT at this time. tw2 18:30 Reassessment: provider at bedside at this time giving pt results. tw2 18:39 Reassessment: pt refusing shoulder immobilizer at this time. prefers to stay in the tw2 position that she is in without moving at this time. provider notified. 18:43 Reassessment: xray at bedside at this time. tw2 Vital Signs: 16:45 BP 107 / 66; Pulse 89; Resp 18; Temp 98.6(TE); Pulse Ox 95% on R/A; Weight 95.25 kg tw2 (R); Height 5 ft. 7 in. (170.18 cm) (R); Pain 10/10; 18:23 BP 107 / 79; Pulse 67; Resp 17; Pulse Ox 95% on R/A; tw2 18:30 Pain 10/10; tw2 18:30 BP 119 / 47; Pulse 73; Resp 18; Pulse Ox 95% on R/A; Pain 10/10; tw2 19:31 BP 114 / 54; Pulse 66; Resp 18; Pulse Ox 98% on R/A; df1 21:43 BP 114 / 60; Pulse 72; Resp 18; Pulse Ox 99% on R/A; df1 16:45 Body Mass Index 32.89 (95.25 kg, 170.18 cm) tw2 ED Course: 16:46 Patient arrived in ED. am2 16:46 Raina Alves DO is Private Physician. am2 16:46 Lazaro Alvarenga PA is PHCP. cp 16:46 Daniel Scott MD is Attending Physician. cp 16:58 Ele Schmitt, LUBNA is Primary Nurse. tw2 17:13 Triage completed. tw2 17:13 Arm band placed on. tw2 17:16 Head C Spine Cap Wo Con In Process Unspecified. EDMS 17:30 Patient has correct armband on for positive identification. Placed in gown. Bed in low jl7 position. Call light in reach. Side rails up X 1. Pulse ox on. NIBP on. 17:50 XRAY Humerus RIGHT In Process Unspecified. EDMS 17:50 XRAY Clavicle RIGHT In Process Unspecified. EDMS 17:57 Missed attempt(s): 20 gauge in right antecubital area. Bleeding controlled, band aid tw2 applied, catheter tip intact. Missed attempt(s): 24 gauge in right hand. blood collected. notified LUBNA adrian of need for iv at this time.. Bleeding controlled, band aid applied, catheter tip intact. 18:21 Lab(s) recollected, by me, sent to lab. Inserted saline lock: 24 gauge in left hand, jl7 using aseptic technique. Blood collected. 19:03 Wrist Left 3 View In Process Unspecified. EDMS 19:43 initiated a transfer with Shelby from [facility]. mw2 19:49 SARS-COV-2 RT PCR Sent. kc4 19:52 Primary Nurse role handed off by Ele Schmitt, LUBNA mw2 19:56 administrative approval given by Shelby Watson/ patient has been accepted to [address] to the ER/ Dr. Mobley accepted the patient in transfer/report to be called to [phone]. 19:58 Latia Iyer is Primary Nurse. df1 21:42 Hardin cath inserted, using sterile technique, 16 Fr., by ok, balloon inflated, to df1 gravity drainage. Administered Medications: 18:15 Drug: Zofran (Ondansetron) 4 mg Route: IVP; Site: left hand; jl7 18:36 Follow up: Response: No adverse reaction tw2 18:17 Drug: fentaNYL (PF) 25 mcg Route: IVP; Site: left hand; jl7 18:30 Follow up: Pain 10/10 Adult; Response: No adverse reaction; Pain is unchanged, tw2 physician notified; RASS: Alert and Calm (0) 18:30 Drug: fentaNYL (PF) 25 mcg {Note: RASS 0.} Route: IVP; Site: left hand; tw2 20:51 Follow up: Response: Pain is decreased df1 19:58 Drug: NS 0.9% 500 ml Route: IV; Rate: bolus; Site: left hand; df1 20:50 Follow up: IV Status: Completed infusion; IV Intake: 500ml df1 20:31 Drug: fentaNYL (PF) 25 mcg Route: IVP; Site: left hand; kc4 20:50 Follow up: Response: Pain is decreased df1 21:30 Follow up: Response: No adverse reaction kc4 20:50 Drug: NS 0.9% 500 ml Route: IV; Rate: 100 ml/hr; Site: left hand; df1 21:48 Follow up: Response: No adverse reaction df1 21:36 Drug: fentaNYL (PF) 25 mcg {Note: Pain increasing, EMS at the for transport. 25mcg kc4 Fentanyl administered.} Route: IVP; Site: left hand; 21:47 Follow up: Response: Pain is decreased df1 Intake: 20:50 IV: 500ml; Total: 500ml. df1 Outcome: 18:42 ER care complete, transfer ordered by . cp 21:49 Patient left the ED. df1 Signatures: Dispatcher [employer] EDMS Lazaro Alvarenga PA PA cp Wise, Tara RN RN tw2 Amy Pacheco RN RN jl7 Rosana Gagnon am2 Sherly Anthony mw2 Alivia Gill kc4 Latia Iyer df1 Corrections: (The following items were deleted from the chart) 19:16 18:21 Inserted saline lock: 22 gauge in left hand, using aseptic technique. Blood tw2 collected. jl7 19:35 19:30 CORONAVIRUS+ drawn and sent. df1 EDMS 19:38 17:13 Allergies: thyroid med; tw2 df1 :38 19:32 Allergies: hypothyroid; df1 df1
[2021-07-29 19:12] LABS: Blood Morphology Comment NOT SEEN (NOT SEEN); Platelet Estimate ADEQ; White Blood Cell Scan OK (OK)
--- NOTE | 2021-07-29 19:25 | RAD REPORT ---
EXAM DESCRIPTION: RAD - Wrist Left 3 View - 07/29/2021 7:03 pm CLINICAL HISTORY: PAIN COMPARISON: No comparisons FINDINGS: No acute fracture. Ulnar minus variance. No significant focal degenerative changes. IMPRESSION: No acute osseous abnormality involving the left wrist.
[2021-07-29] MEDS ORDERED: NA CHLORIDE 0.9% 1,000 ML ONE (19:39)
[2021-07-29 22:00] VITALS: TEMP 98.6
[2021-07-29 22:07] VITALS: BP 114/60; O2SAT 99
--- OUTSIDE RECORDS SUMMARY | 2021-07-30 23:05 | XMS REPORT | Continuity of Care Document ---
:1960 Author Organization [facility] t Address [address] [place] [address] [address]. [address] [place] [address] Care Team Providers Name Role Phone EVELYN Attending Clinician Unavailable SELINA Attending Clinician Unavailable RAOUL Attending Clinician Unavailable Problems This patient has no known problems. Allergies, Adverse Reactions, Alerts This patient has no known allergies or adverse reactions. Medications This patient has no known medications. Procedures This patient has no known procedures. Encounters Start End Encounter Admission Attending Care Care Encounter Source Date/Time Date/Time Type Type Clinicians Facility Department ID 2021-05-18 2021-05-18 Outpatient EVELYN [facility] [id number] [place] 00:00:00 00:00:00 [place] [address] [facility] [address] 2021-05-18 2021-05-18 Outpatient IGNACIONelson [facility] [id number] [place] 00:00:00 00:00:00 [place] [address] 2021-02-16 2021-02-16 Outpatient SELINA [facility] [id number] [place] 00:00:00 00:00:00 [place] [address] 2020-11-25 2020-11-25 Outpatient MESFIN SILVEIRA [facility] [id number] [place] 00:00:00 00:00:[address] 2020-11-25 2020-11-25 Outpatient MESFIN SILVEIRA [facility] [id number] [place] 00:00:00 00:00:[address] 2020-11-25 2020-11-25 Outpatient MESFIN SILVEIRA [facility] [id number] [place] 00:00:00 00:00:[address] 2020-11-17 2020-11-17 Outpatient IGNACIONelson [facility] [id number] [place] 00:00:00 00:00:00 [place] [address] 2020-10-06 2020-10-06 Outpatient SELINA, [facility] [id number] [place] 00:00:00 00:00:00 [place] [address] [facility] 2020-08-18 2020-08-18 Outpatient SELINA, [facility] [id number] [place] 00:00:00 00:00:00 [place] [address] 2020-07-28 2020-07-28 Outpatient SELINA [facility] [id number] [place] 00:00:00 00:00:00 [place] [address] 2020-07-28 2020-07-28 Outpatient SELINA [facility] [id number] [place] 00:00:00 00:00:00 [place] [address] 2020-06-10 2020-06-10 Outpatient MESFIN SILVEIRA [facility] [id number] [place] 00:00:00 00:00:[address] 2020-05-27 2020-05-27 Outpatient MESFIN SILVEIRA [facility] [id number] [place] 00:00:00 00:00:[address] 2020-05-21 2020-05-21 Outpatient MESFIN SILVEIRA [facility] [id number] [place] 00:00:00 00:00:[address] Results This patient has no known results.
== END 2021-07-29 21:49 | disposition short-term general hospital (02) ==
LOC: ER 16:45
DX: S42.201A Unspecified fracture of upper end of right humerus, initial encounter for closed fracture (principal); S22.41XA Multiple fractures of ribs, right side, initial encounter for closed fracture; W17.89XA Other fall from one level to another, initial encounter; E03.9 Hypothyroidism, unspecified; Z95.828 Presence of other vascular implants and grafts; Z79.82 Long term (current) use of aspirin; Z88.8 Allergy status to other drugs, medicaments and biological substances; Z20.822 Contact with and (suspected) exposure to COVID-19
CPT/HCPCS: 96361; 85025; 80048; 36415; 86900; 86850; 86901; 70450; 71250; 72125; 73060; 73110; 73000; 51702; 96375; 96374; 99284; U0003; J3010 ×3; J7030; J2405

== ENCOUNTER 2023-12-09 15:05 | Observation (INO) | payer BC ==
[2023-12-09] MEDS ORDERED: ONDANSETRON 4 MG/2 ML VIAL ONE (15:54)
[2023-12-09] MEDS ORDERED: NA CHLORIDE 0.9% 1,000 ML ONE (15:55)
[2023-12-09] MEDS ORDERED: MORPHINE 4 MG/ML SYR ONE (15:55)
[2023-12-09 16:12] LABS: Absolute Basophils 0.1 K/uL (0-0.5); Absolute Lymphocytes (CBC) 0.9 K/uL (0.7-4.9); Absolute Monocytes 0.6 K/uL (0.1-1.3); Absolute Neutrophil 9.6 K/uL (1.8-8.0); Basophils % 0.5 % (0-1.3); Eosinophils % 0.1 % (0-4.4); Hematocrit 39.6 % (36.0-45.0); Hemoglobin 13.2 g/dL (12.0-15.0); Lymphocytes % 8.2 % (15.3-44.8); MCH 31.6 pg (27.0-35.0); MCHC 33.4 g/dL (32.0-36.0); MCV 94.7 fL (80-100); MPV 8.7 fL (7.6-11.3); Monocytes % 5.7 % (3.3-12.3); Neutrophils % 85.5 % (41.7-73.7); Platelets 247 thou/uL (152-406); RBC Red Blood Cell Count 4.18 M/uL (3.86-4.86); Red Cell Distribution Width 17.1 % (12.1-15.2)
[2023-12-09 16:24] LABS: Albumin 3.5 g/dL (3.4-5.0); Albumin/Globulin Ratio 0.9 (1.1-1.8); Anion Gap 9.6 mEq/L (5.0-15.0); Bilirubin Total 0.5 mg/dL (0.2-1.0); Potassium 3.6 mEq/L (3.5-5.1); Protein, Total 7.5 g/dL (6.4-8.2)
--- NOTE | 2023-12-09 17:58 | ER ---
Nurse's Notes [facility] Name: Serina Valentino Age: 63 yrs Sex: Female : 1960 Arrival Date: 12/09/2023 Time: 15:05 Bed 6 Private MD: Raina Alves H Diagnosis: Small bowel obstruction Presentation: 12/08 15:43 Chief complaint: Patient states: Abdominal pain and vomiting since yesterday. Unable to nj1 keep anything down, denies diarrhea. 15:43 Coronavirus screen: Vaccine status: Patient reports being unvaccinated. Ebola Screen: nj1 Patient denies travel to an Ebola-affected area in the 21 days before illness onset. Initial Sepsis Screen: Does the patient meet any 2 criteria? No. Patient's initial sepsis screen is negative. Does the patient have a suspected source of infection? No. Patient's initial sepsis screen is negative. Risk Assessment: Do you want to hurt yourself or someone else? Patient reports no desire to harm self or others. Onset of symptoms was December 08, 2023. 15:43 Method Of Arrival: Ambulatory [facility] 15:43 Acuity: MAHESH 3 nj Historical: - Allergies: 15:50 Celebrex; nj1 15:50 Iodine; nj1 - Home Meds: 18:22 clopidogrel 75 mg Oral tab once daily [Active]; Euthyrox 150 mcg oral tablet daily iw [Active]; aspirin 81 mg Oral tab daily [Active]; meloxicam 15 mg oral tablet daily [Active]; prednisone 5 mg Oral tablet daily [Active]; lisinopril 5 mg Oral tablet daily [Active]; folic acid 1 mg Oral tablet daily [Active]; Methotrexate (Anti-Rheumatic) 2.5 mg Oral tab 1 tab once wkly [Active]; Enbrel 50 mg/mL (1 mL) subcutaneous Syringe every week [Active]; atorvastatin oral daily [Active]; - PMHx: 15:50 Femoral artery stents; Hypothyroidism; PVD; RA; nj1 18:22 Hypercholesterolemia; iw - PSHx: 15:50 Bilateral shoulder repair; Thyroidectomy; total Hysterectomy; Fempop bypass (Unknown); nj1 - Immunization history:: Client reports having NOT received the Covid vaccine. - Social history:: Smoking status: Patient denies any tobacco usage or history of. Screenin:07 [facility] ED Fall Risk Assessment (Adult) Score/Fall Risk Level 0 - 2 = Low Risk. Abuse iw screen: Denies threats or abuse. Denies injuries from another. Nutritional screening: No deficits noted. Tuberculosis screening: No symptoms or risk factors identified. Assessment: 16:06 General: Appears in no apparent distress. Behavior is calm, cooperative. Pain: iw Complains of pain in left upper quadrant and left lower quadrant. Neuro: Level of Consciousness is awake, alert, obeys commands, Oriented to person, place, time, situation, Moves all extremities. Cardiovascular: Patient's skin is warm and dry. Respiratory: Respiratory effort is even, unlabored, Respiratory pattern is regular. GI: Reports upper abdominal pain, nausea, vomiting. Derm: Skin is intact, is healthy with good turgor. Musculoskeletal: Range of motion:. 18:21 Reassessment: Patient appears in no apparent distress at this time. Patient and/or iw family updated on plan of care and expected duration. Pain level reassessed. Patient is alert, oriented x 3, equal unlabored respirations, skin warm/dry/pink. GI: 19:20 Reassessment: PT desat to 86% on RA while sitting in bed. Placed on 2L NC, sats came jb4 back up to 97%. Pt and family states this has been happening while pt sleep or starts to fall asleep. Pt noted to be awake during period of Desat. 20:00 General: Appears comfortable, well nourished, Behavior is calm, cooperative. Pain: bm8 Complains of pain in abdomen Pain does not radiate. Pain currently is 4 out of 10 on a pain scale. Quality of pain is described as aching, tender. Neuro: Level of Consciousness is awake, alert, obeys commands, Oriented to person, place, time, [place] are equal bilaterally Moves all extremities. Gait is steady, Speech is normal, Facial symmetry appears normal. Cardiovascular: Capillary refill < 3 seconds Patient's skin is warm and dry. Respiratory: Respiratory effort is even, unlabored, Respiratory pattern is regular. GI: Bowel sounds hypoactive in right lower quadrant Abd is soft Abdomen is tender to palpation in right lower quadrant Reports upper abdominal pain. : No deficits noted. No signs and/or symptoms were reported regarding the genitourinary system. EENT: No deficits noted. No signs and/or symptoms were reported regarding the EENT system. Vital Signs: 15:43 BP 147 / 70; Pulse 80; Resp 18; Temp 97.9(O); Pulse Ox 95% on R/A; Weight 93.44 kg; nj1 Height 5 ft. 7 in. ; Pain 7/10; 16:00 BP 137 / 97; Pulse 72; Resp 16; Pulse Ox 93% ; jp5 17:27 BP 103 / 68; Pulse 68; Resp 18; Pulse Ox 94% on R/A; jp5 18:30 BP 113 / 54; Pulse 69; Resp 18; Pulse Ox 96% on R/A; jp5 20:00 BP 112 / 70; Pulse 72; Resp 18; Pulse Ox 98% on 2 lpm NC; jb4 20:06 BP 143 / 71; Pulse 82; Resp 18; Pulse Ox 96% on R/A; Pain 4/10; bm8 15:43 Body Mass Index 32.26 (93.44 kg, 170.18 cm) nj1 15:43 Pain Scale: Adult nj1 20:06 Pain Scale: Adult bm8 ED Course: 15:07 Patient arrived in ED. mr 15:07 Raina Alves DO is Private Physician. mr 15:44 [facility]rix[facility] Weathers [facility]-C [facility]. kb 15:44 Lazaro Duron MD is Attending Physician. kb 15:50 Triage completed. nj1 15:51 Arm band placed on. nj1 16:00 Inserted saline lock: 22 gauge in right antecubital area, using aseptic technique. iw Blood collected. 16:45 Kassandra Watson, RN is Primary Nurse. iw 16:[address] via stretcher. hb 16:56 CT Abd/Pelvis - Without Contrast In Process Unspecified. EDMS 17:57 Burton Vazquez is Hospitalizing Provider. kb 18:19 Oral contrast given. mw3 18:21 Patient has correct armband on for positive identification. Bed in low position. iw Provided Education on: CT . Client placed on continuous cardiac and pulse oximetry monitoring. NIBP monitoring applied. 18:22 No provider procedures requiring assistance completed. Patient maintains SpO2 iw saturation greater than 95% on room air. 20:04 Door closed. Noise minimized. Warm blanket given. assisted pt with elimation needs to [facility] restroom. 20:52 Abdomen In Process Unspecified. EDMS 21:31 Patient admitted, IV remains in place. jb4 Administered Medications: 16:05 Drug: Ondansetron IVP 4 mg IVP once; over 2 minutes Route: IVP; Site: right antecubital;iw 16:05 Drug: morphine IVP or IV 4 mg IVP once over 4 mins Route: IVP; Infused Over: 4 mins; iw Site: right antecubital; 16:05 Drug: NS 0.9% IV 500 ml IV at bolus once Route: IV; Rate: bolus; Site: right iw antecubital; 18:46 Follow up: IV Status: Completed infusion; IV Intake: 500ml jp5 18:06 Drug: fentaNYL (PF) IVP 25 mcg IVP once Route: IVP; Site: right antecubital; iw 18:21 Drug: diphenhydrAMINE IVP 12.5 mg IVP once Route: IVP; Site: right antecubital; iw 18:21 Drug: Famotidine IVP 20 mg IVP once; dilute with 10 mL 0.9% NaCl; give over 2 minutes iw Route: IVP; Site: right antecubital; 20:06 Follow up: BP 143 / 71; Pulse 82 bpm; Resp 18 bpm; Pulse Ox 96% RA; Pain 4/10 Adult bm8 18:46 Drug: NS 0.9% IV 1000 ml IV at 100 ml/hr once Route: IV; Rate: 100 ml/hr; Site: right jp5 antecubital; Intake: 18:46 IV: 500ml; Total: 500ml. jp5 Outcome: 17:57 Decision to Hospitalize by Provider. kb 21:29 Admitted to Med/surg accompanied by tech, via wheelchair, room 230, with oxygen, with jb4 chart, 21:29 Condition: stable 21:29 Discharge instructions given to patient, Instructed on the need for admit, Demonstrated understanding of instructions, 21:31 Patient left the ED. jb4 Signatures: Dispatcher [employer] EDMS Trixie Weathers, DUCTFIXING PLUMBER-C DUCTFIXING PLUMBER-CkStephanie Eisenberg, Reg Reg mr Kassandra Watson, RN RN iw Ines Pepper, LUBNA RN Ryan Segovia, RN RN jb4 Saba Preston mw3 Naya Rasheed RN RN nj1 Cody Joy RN RN bm8 Katie Almanza, RN RN jp5 Corrections: (The following items were deleted from the chart) 21:29 19:20 Reassessment: PT desat to 86% on RA while sitting in bed. Placed on 2L NC, sats jb4 came back up to 97% jb4
--- NOTE | 2023-12-09 17:58 | EDPHYS ---
Physician Documentation [facility] Name: Serina Valentino Age: 63 yrs Sex: Female : 1960 Arrival Date: 12/09/2023 Time: 15:05 Bed 6 Private MD: Raina Alves H ED Physician Lazaro Duron HPI: 12/08 17:26 This 63 yrs old Female presents to ER via Ambulatory with complaints of Abdominal Pain, kb Vomiting. 17:26 Pt is a 63 year old female who presents for LUQ pain and vomiting that started kb yesterday. Denies fever, diarrhea. . Historical: - Allergies: 15:50 Celebrex; nj1 15:50 Iodine; nj1 - Home Meds: 18:22 clopidogrel 75 mg Oral tab once daily [Active]; Euthyrox 150 mcg oral tablet daily iw [Active]; aspirin 81 mg Oral tab daily [Active]; meloxicam 15 mg oral tablet daily [Active]; prednisone 5 mg Oral tablet daily [Active]; lisinopril 5 mg Oral tablet daily [Active]; folic acid 1 mg Oral tablet daily [Active]; Methotrexate (Anti-Rheumatic) 2.5 mg Oral tab 1 tab once wkly [Active]; Enbrel 50 mg/mL (1 mL) subcutaneous Syringe every week [Active]; atorvastatin oral daily [Active]; - PMHx: 15:50 Femoral artery stents; Hypothyroidism; PVD; RA; nj1 18:22 Hypercholesterolemia; iw - PSHx: 15:50 Bilateral shoulder repair; Thyroidectomy; total Hysterectomy; Fempop bypass (Unknown); nj1 - Immunization history:: Client reports having NOT received the Covid vaccine. - Social history:: Smoking status: Patient denies any tobacco usage or history of. ROS: 17:26 Constitutional: As per HPI kb Exam: 17:26 Constitutional: This is a well developed, well nourished patient who is awake, alert, kb and in no acute distress. Head/Face: Normocephalic, atraumatic. ENT: Moist Mucous membranes Cardiovascular: Regular rate Respiratory: Respirations even and unlabored. No increased work of breathing. Talking in full sentences Skin: Warm, dry with normal turgor. Normal color. MS/ Extremity: Pulses equal, no cyanosis. Neurovascular intact. Full, normal range of motion. Neuro: Awake and alert, GCS 15, oriented to person, place, time, and situation. Moves all extremities. Normal gait. 17:26 Abdomen/GI: Inspection: abdomen appears normal, Bowel sounds: normal, Palpation: soft, in all quadrants, mild abdominal tenderness, in all quadrants, Vital Signs: 15:43 BP 147 / 70; Pulse 80; Resp 18; Temp 97.9(O); Pulse Ox 95% on R/A; Weight 93.44 kg; nj1 Height 5 ft. 7 in. ; Pain 7/10; 16:00 BP 137 / 97; Pulse 72; Resp 16; Pulse Ox 93% ; jp5 17:27 BP 103 / 68; Pulse 68; Resp 18; Pulse Ox 94% on R/A; jp5 18:30 BP 113 / 54; Pulse 69; Resp 18; Pulse Ox 96% on R/A; jp5 20:00 BP 112 / 70; Pulse 72; Resp 18; Pulse Ox 98% on 2 lpm NC; jb4 20:06 BP 143 / 71; Pulse 82; Resp 18; Pulse Ox 96% on R/A; Pain 4/10; bm8 15:43 Body Mass Index 32.26 (93.44 kg, 170.18 cm) nj1 15:43 Pain Scale: Adult nj1 20:06 Pain Scale: Adult bm8 MDM: 15:44 Patient medically screened. kb 17:27 Data reviewed: vital signs, nurses notes. kb 17:45 Differential diagnosis: bowel obstruction, diverticulitis, gastritis, gastroesophageal kb reflux disease, non-specific abd pain, pancreatitis. Consideration of Admission/Observation Patient was admitted/placed on observation. Escalation of care including admission/observation considered. Management of patient was discussed with the following: Field Sales Manager: Dr Krueger accepts pt for consult. Wants abd ct with oral contrast now. Hold off on NG tube. Counseling: I had a detailed discussion with the patient and/or guardian regarding the historical points, exam findings, and any diagnostic results supporting the discharge/admit diagnosis, lab results, radiology results, the need for further work-up and treatment in the hospital. 17:57 Management of patient was discussed with the following: Hospitalist: Dr Vazquez accepts kb pt for admission. 12/08 15:48 Order name: CBC with Diff; Complete Time: 08:34 kb 12/08 15:48 Order name: CMP; Complete Time: 16:25 kb 12/08 15:48 Order name: Lipase; Complete Time: 16:25 kb 12/08 15:48 Order name: Urinalysis w/ reflexes; Complete Time: 08:34 kb 12/08 20:28 Order name: CBC Smear Scan; Complete Time: 08:34 EDMS 12/08 21:10 Order name: Urinalysis w/ reflexes EDOK 12/08 21:10 Order name: CBC with Automated Diff EDMS 12/08 21:10 Order name: CBC with Automated Diff; Complete Time: 08:34 EDMS 12/08 21:10 Order name: Comprehensive Metabolic Panel EDMS 12/08 21:10 Order name: Comprehensive Metabolic Panel; Complete Time: 08:34 EDMS 12/08 21:10 Order name: Magnesium EDOK 12/08 21:10 Order name: Magnesium; Complete Time: 08:34 EDMS 12/08 21:10 Order name: Phosphorus EDOK 12/08 21:10 Order name: Phosphorus; Complete Time: 08:34 EDMS 12/08 15:48 Order name: CT Abd/Pelvis - Without Contrast 12/08 20:29 Order name: Abdomen ; Complete Time: 08:34 EDMS 12/08 21:03 Order name: CONS Physician Consult EDOK 12/08 15:48 Order name: IV Saline Lock; Complete Time: 16:06 kb 12/08 15:48 Order name: Labs collected and sent; Complete Time: 16:06 kb Administered Medications: 16:05 Drug: Ondansetron IVP 4 mg IVP once; over 2 minutes Route: IVP; Site: right antecubital;iw 16:05 Drug: morphine IVP or IV 4 mg IVP once over 4 mins Route: IVP; Infused Over: 4 mins; iw Site: right antecubital; 16:05 Drug: NS 0.9% IV 500 ml IV at bolus once Route: IV; Rate: bolus; Site: right iw antecubital; 18:46 Follow up: IV Status: Completed infusion; IV Intake: 500ml jp5 18:06 Drug: fentaNYL (PF) IVP 25 mcg IVP once Route: IVP; Site: right antecubital; iw 18:21 Drug: diphenhydrAMINE IVP 12.5 mg IVP once Route: IVP; Site: right antecubital; iw 18:21 Drug: Famotidine IVP 20 mg IVP once; dilute with 10 mL 0.9% NaCl; give over 2 minutes iw Route: IVP; Site: right antecubital; 20:06 Follow up: BP 143 / 71; Pulse 82 bpm; Resp 18 bpm; Pulse Ox 96% RA; Pain 4/10 Adult bm8 18:46 Drug: NS 0.9% IV 1000 ml IV at 100 ml/hr once Route: IV; Rate: 100 ml/hr; Site: right jp5 antecubital; Disposition Summary: 12/09/23 17:57 Hospitalization Ordered Notes: Hospitalization Status: Inpatient Admission kb Provider: Burton Vazquez Location: Telemetry/MedSurg (Inpatient) kb Condition: Stable kb Problem: new kb Symptoms: are unchanged kb Bed/Room Type: Standard Room Assignment: 230(12/09/23 20:35) cg Diagnosis - Small bowel obstruction kb Forms: - Medication Reconciliation Form kb - SBAR form kb - Leadership Thank You Letter kb Signatures: Dispatcher [employer] EDMS Trixie Weathers, SALES CLERK-C SALES CLERK-Ckb Kassandra Watson, RN RN iw Lara Barker, RN RN cg Ines Pepper, RN RN Naya Rasheed RN RN nj1 Katie Almanza, RN RN jp5 Cody Joy RN bm8 Corrections: (The following items were deleted from the chart) 20:29 17:50 Abdomen Pelvis W Con+CT.RAD.BRZ ordered. EDMS EDMS 20:35 17:57 kb cg
[2023-12-09] MEDS ORDERED: FENTANYL CITR 100 MCG/2 ML ONE (18:01)
[2023-12-09] MEDS ORDERED: DIPHENHYDRAMINE 50 MG/ML VIAL ONE (18:16)
[2023-12-09] MEDS ORDERED: FAMOTIDINE 20 MG/2 ML VIAL IV ONE (18:17)
[2023-12-09 20:11] LABS: Sqamous Epithelial <5 /HPF (None Seen); Urine Bacteria <20 /HPF (<20); Urine Microscopic Reflex YN ORDER UMIC; Urine RBC <5 /HPF (None Seen); Urine WBC <5 /HPF (<5)
[2023-12-09 20:12] LABS: Urine Bilirubin NEGATIVE (Negative); Urine Blood Negative (Negative); Urine Clarity Clear (Clear); Urine Color Light-Yellow (Yellow); Urine Glucose NEGATIVE (Negative); Urine Ketones NEGATIVE (Negative); Urine Nitrite NEGATIVE (Negative); Urine Protein TRACE (Negative); Urine Urobilinogen Normal (Normal)
[2023-12-09 20:28] LABS: Blood Morphology Comment NOT SEEN (NOT SEEN); Platelet Estimate ADEQ; White Blood Cell Scan OK (OK)
--- NOTE | 2023-12-09 20:51 | P.HP ---
Certification for Inpatient Patient admitted to: Observation With expected LOS: <2 Midnights Practitioner: I am a practitioner with admitting privileges, knowledge of patient current condition, hospital course, and medical plan of care. Services: Services provided to patient in accordance with Admission requirements found in Title 42 Section 412.3 of the Code of Federal Regulations Patient History Date of Service: 12/09/23 Reason for admission: Abdominal pain, nausea vomiting History of Present Illness: 63-year-old male with a history of rheumatoid arthritis, peripheral vascular disease status post multiple vascular surgeries including laparotomy with abdominal aortic surgery presented to the emergency department with a complaint of several bouts of vomiting along with abdominal pain. Patient denies any constipation. CT abdomen and pelvis done in the emergency department demonstrated small bowel obstruction. Also noted significant stool burden. Surgery Dr. Krueger was contacted who recommended repeat CT scan with barium contrast. Patient has not vomited since presentation to the ED. She is hospitalized for further management. Allergies celecoxib [From Celebrex] Allergy (Verified 12/09/23 17:58) Itching/Hives/Rash iodine Allergy (Verified 12/09/23 17:58) Itching/Hives/Rash - Past Medical/Surgical History -: Peripheral vascular disease -: Hyperlipidemia -: Rheumatoid arthritis -: Aortofemoral bypass - Social History Smoking Status: Never smoker Alcohol use: No Place of Residence: Home Review of Systems Other: Patient denied any fever, she denied any diarrhea. She denied any headache. Except as documented, all other systems reviewed and negative. Physical Examination - Physical Exam General: Alert, In no apparent distress, Oriented x3, Obese HEENT: PERRLA, Mucous membr. moist/pink, Sclerae nonicteric Neck: Supple, JVD not distended Respiratory: Clear to auscultation bilaterally, Normal air movement Cardiovascular: No edema, Regular rate/rhythm, Normal S1 S2, No murmurs Gastrointestinal: Normal bowel sounds, Soft and benign, Non-distended, No tenderness Musculoskeletal: No swelling, No tenderness Integumentary: No rashes, No cyanosis Neurological: Normal speech, Normal strength at 5/5 x4 extr, Cranial nerves 3-12 intact Lymphatics: No axilla or inguinal lymphadenopathy - Studies Laboratory Data (last 24 hrs) 12/09/23 12/09/23 15:58 15:58 WBC 11.20 H Hgb 13.2 Hct 39.6 Plt Count 247 Sodium 142 Potassium 3.6 BUN 23 H Creatinine 0.79 Glucose 131 H Total Bilirubin 0.5 AST 19 ALT 20 Alkaline Phosphatase 110 Lipase 15 Assessment and Plan - Problems (Diagnosis) (1) Small bowel obstruction Current Visit: Yes Status: Acute (2) Peripheral vascular disease Current Visit: Yes Status: Acute (3) Hyperlipidemia Current Visit: Yes Status: Acute (4) Rheumatoid arthritis Current Visit: Yes Status: Acute - Plan Small bowel obstruction Patient with a history of laparotomy 7 months ago Small bowel obstruction possibly secondary to adhesions. Placed on observation on the medical floor Supportive measures with IV fluid Consult to general surgery-Dr. Krugeer. Repeat CT abdomen and pelvis with oral barium contrast requested per Dr. Krueger recommendation. No indication for NG tube for now per Dr. Krueger. Empiric IV antibiotic Analgesics as needed. Serial abdominal examination. Peripheral vascular disease Resume aspirin and Lipitor once bowel obstruction improved and oral intake resumed. Rheumatoid arthritis Hold oral medications until bowel obstruction resolve. DVT prophylaxis: Heparin SQ. - Advance Directives Does patient have a Living Will: No Does patient have a Durable POA for Healthcare: No
--- NOTE | 2023-12-09 20:56 | RAD REPORT ---
EXAM DESCRIPTION: CT - Abdomen Pelvis Wo Contrast - 12/09/2023 8:50 pm CLINICAL HISTORY: Abdominal pain. ABD PAIN COMPARISON: Abdomen Pelvis Wo Contrast dated 12/09/2023 TECHNIQUE: CT imaging of the abdomen and pelvis was performed without contrast. Solid organ and vasc ular assessment is limited due to lack of IV contrast. All CT scans are performed using dose optimization technique as appropriate and may include automated exposure control or mA/KV adjustment according to patient size. FINDINGS: The lower lung hummel are clear. The liver, spleen, pancreas, adrenal glands and kidneys are within normal limits for a limited non-co ntrast examination. Mildly dilated small bowel loops in the central abdomen are present. Maximum dilatation is 3.4 cm. Sm all fat containing umbilical hernia. No free air or abscess. Aortoiliac atherosclerosis. The appendix is normal. The osseous structures are within normal limits.Postsurgical changes of both inguinal region. IMPRESSION: Mildly dilated small bowel lobes the central abdomen likely indicating mild mechanical s mall-bowel obstruction. A limited non-contrast examination was performed as detailed.
[2023-12-09] MEDS ORDERED: ONDANSETRON 4 MG/2 ML VIAL IV PRN (21:02)
[2023-12-09] MEDS: D5.45NS W/KCL 20MEQ 1,000 ML IV SCH (22:53)
[2023-12-09 23:43] VITALS: BMI 32.2
[2023-12-10] MEDS: HEPARIN 5000 UNIT/ML 1 ML VIAL SQ SCH (01:00)
[2023-12-10] MEDS: METRONIDAZOLE 500mg IVPB 500 MG/100 ML BAG IV SCH (01:48)
[2023-12-10 03:53] LABS: Absolute Basophils 0.1 K/uL (0-0.5); Absolute Eosinophils 0.3 K/uL (0-0.5); Absolute Lymphocytes (CBC) 0.8 K/uL (0.7-4.9); Absolute Monocytes 0.8 K/uL (0.1-1.3); Absolute Neutrophil 7.7 K/uL (1.8-8.0); Basophils % 0.6 % (0-1.3); Eosinophils % 2.9 % (0-4.4); Hematocrit 34.8 % (36.0-45.0); Hemoglobin 11.5 g/dL (12.0-15.0); Lymphocytes % 8.2 % (15.3-44.8); MCH 31.7 pg (27.0-35.0); MCHC 33.1 g/dL (32.0-36.0); MCV 95.8 fL (80-100); MPV 8.9 fL (7.6-11.3); Neutrophils % 80.3 % (41.7-73.7); Platelets 204 thou/uL (152-406); RBC Red Blood Cell Count 3.63 M/uL (3.86-4.86)
[2023-12-10] MEDS ORDERED: MORPHINE 2 MG/ML SYR IV PRN (04:08)
[2023-12-10 04:11] LABS: Albumin 2.7 g/dL (3.4-5.0); Albumin/Globulin Ratio 0.8 (1.1-1.8); Anion Gap 10.1 mEq/L (5.0-15.0); Bilirubin Total 0.6 mg/dL (0.2-1.0); Globulin 3.3 g/dL (2.3-3.5); Magnesium 1.8 mg/dL (1.6-2.4); Phosphorus 5.4 mg/dL (2.5-4.9); Potassium 4.1 mEq/L (3.5-5.1)
[2023-12-10] MEDS: CALCIUM GLUC 10% INJ 9.3 MEQ in NA CHLORIDE 0.9% 100 ML IV ONE (04:30)
[2023-12-10 04:43] LABS: Blood Morphology Comment NOT SEEN (NOT SEEN); Platelet Estimate ADEQ; Platelets Clumped FEW; White Blood Cell Scan OK (OK)
[2023-12-10] MEDS: MAGNESIUM SULFATE 1 gm IVPB 1 GM/100 ML BAG IV ONE ×2 (05:58→06:01)
[2023-12-10] MEDS ORDERED: CALCIUM GLUC 10% INJ 9.3 MEQ in NA CHLORIDE 0.9% 100 ML IV ONE (08:00)
[2023-12-10] MEDS: INFLUENZA VACCINE (for 6+ mo) 0.5 ML DOSE IMVAC ONE (08:00)
[2023-12-10] MEDS: CALCIUM GLUCONATE 1 GM IVPB 1 GM/50 ML BAG IV SCH (08:25)
[2023-12-10] MEDS: CIPROFLOXACIN 400mg IV 400 MG/200 ML BAG IV SCH (09:21)
--- NOTE | 2023-12-10 10:13 | P.PN ---
Subjective Date of Service: 12/10/23 Chief Complaint: Abdominal pain, nausea vomiting Pt is resting comfortably in bed. Pt denies any BM. She had barium contrast study last night. Waiting for Gen surgery recommendation. P t is NPO. No other complaints. Review of Systems General: Unremarkable Eyes: Unremarkable ENT: Unremarkable Respiratory: Unremarkable Cardiovascular: Unremarkable Gastrointestinal: Unremarkable Genitourinary: Unremarkable Musculoskeletal: Unremarkable Integumentary: Unremarkable Neurological: Unremarkable Lymphatics: Unremarkable Physical Examination - Vital Signs Temperature: 97.0 F Blood Pressure: 90/48 Pulse: 57 Respirations: 17 Pulse Ox (%): 96 - Physical Exam General: Alert, In no apparent distress, Oriented x3 HEENT: Atraumatic, Normocephalic, PERRLA Neck: Supple, 2+ carotid pulse no bruit, JVD not distended Respiratory: Clear to auscultation bilaterally, Normal air movement, Diminished Cardiovascular: No edema, Normal pulses, Regular rate/rhythm, Normal S1 S2 Capillary refill: <2 Seconds Gastrointestinal: Normal bowel sounds, Hypoactive, Soft and benign, Non- distended Musculoskeletal: No clubbing, No swelling Integumentary: No rashes, No breakdown, No significant lesion Neurological: Normal gait, Normal speech, Normal strength at 5/5 x4 extr Lymphatics: No axilla or inguinal lymphadenopathy - Studies Laboratory Data (last 24 hrs) 12/09/23 12/09/23 15:58 15:58 WBC 11.20 H Hgb 13.2 Hct 39.6 Plt Count 247 Sodium 142 Potassium 3.6 BUN 23 H Creatinine 0.79 Glucose 131 H Total Bilirubin 0.5 AST 19 ALT 20 Alkaline Phosphatase 110 Lipase 15 Assessment And Plan - Plan SBO: Pt is NPO. CT barium contrast shows mildly dilated small bowel lobes the central abdomen likely indicating mild mechanical small-bowel obstruction. Waiting for Gen surgery recommendation. Peripheral vascular disease: will resume aspirin and Lipitor once bowel obstruction improved and oral intake resumed. Rheumatoid arthritis: Hold oral medications until bowel obstruction resolve. HLD: Will resume statin later. DVT prophylaxis: Heparin SQ.
--- NOTE | 2023-12-10 13:31 | RAD REPORT ---
EXAM DESCRIPTION: CT ABDOMEN AND PELVIS WITHOUT CONTRAST Abdomen Pelvis Wo Contrast CLINICAL HISTORY: ABD PAIN TECHNIQUE: CT abdomen and pelvis was performed, without IV contrast, as per department protocol. Axi al, sagittal, and coronal reconstructions were obtained. IV CONTRAST: Not administered, limiting sensitivity of this exam for evaluation of solid visceral org ans, vascular structures, and retroperitoneum. ORAL CONTRAST: Not administered, limiting sensitivity of this exam for evaluation of bowel, retroperi toneum, and intraabdominal fluid collections. RADIATION DOSE REDUCTION: This exam was performed according to the departmental dose-optimization pro gram which includes automated exposure control, adjustment of the mA and/or kV according to patient s ize and/or use of iterative reconstruction technique. Total DLP: 1124.8. CTDI: 20. COMPARISON: Abdominal CT November 28, 2019 FINDINGS: LOWER CHEST: Mild atelectasis. No acute consolidation or effusion LIVER: Punctate granulomatous calcifications. Normal attenuation GALLBLADDER: Contracted. No radiopaque calculus BILE DUCTS: No biliary dilatation PANCREAS: No pathologic process. SPLEEN: Normal size. Punctate granulomatous calcifications ADRENALS: No pathologic process. KIDNEYS AND URETERS: Normal contour. No calculus. No hydronephrosis URINARY BLADDER: No pathologic process. GASTROINTESTINAL TRACT: The proximal change unit is dilated to 3.2 cm. Loop with small bowel feces. The mid to distal jejunum and ileum are collapsed. Findings compatible with small bowel obstruction proximal jejunum. Colonic stool compatible with constipation Colonic diverticulosis. No diverticulitis No small bowel pneumatosis. No evidence of portal venous gas APPENDIX: No inflammatory changes in region of appendix. The appendix is not identified LYMPH NODES: No lymphadenopathy. PERITONEUM/MESENTERY: No free air, significant free fluid, mass or fluid collection. VESSELS: Atherosclerotic calcification of the aorta. Status post aortobifemoral bypass graft. No evaluation fo r patency without intravenous contrast ADDITIONAL RETROPERITONEAL FINDINGS: None. REPRODUCTIVE ORGANS: Status post hysterectomy ABDOMINAL AND PELVIC PICHARDO: Postoperative scarring anterior abdominal wall. No acute abnormality MUSCULOSKELETAL: No acute abnormality. Generalized osteopenia Mild lumbar degenerative change ADDITIONAL FINDINGS: None. IMPRESSION: 1. Findings compatible with small bowel obstruction. Dilated proximal jejunum with sma ll bowel feces. Collapsed mid to distal jejunum and ileum. If further evaluation warranted, study wit h oral contrast such as small bowel follow-through may be of value to assess transit time 2. Colonic stool compatible with constipation. 3. No free air. No free fluid. 4. No pneumatosis or portal venous gas. 5. No abscess. 6. No hydronephrosis. Standardized Report: [id number]. Electronically signed by: Ravin Craig MD 12/09/2023 05:38 PM CDT Due to temporary technical issues with the PACS/Fluency reporting system, reports are being signed by the in house radiologist without review as a courtesy to ensure prompt reporting. The interpreting r adiologist is fully responsible for the content of the report.
[2023-12-10] MEDS: MINERAL OIL 30 ML UCUP PO ONE (14:53)
[2023-12-10] MEDS: predniSONE 5 MG TAB PO SCH (21:00)
[2023-12-10] MEDS: GABAPENTIN 100 MG CAP PO SCH (22:11)
[2023-12-11] MEDS ORDERED: CALCIUM GLUC 10% INJ 9.3 MEQ in NA CHLORIDE 0.9% 100 ML IV ONE (05:54)
[2023-12-11] MEDS ORDERED: CALCIUM GLUC 10% INJ 4.65 MEQ in NA CHLORIDE 0.9% 100 ML IV ONE (07:35)
[2023-12-11] MEDS: CALCIUM GLUCONATE 1 GM IVPB 1 GM/50 ML BAG IV SCH (07:39)
[2023-12-11] MEDS: LEVOTHYROXINE SOD 0.075 MG TAB PO SCH (07:40)
[2023-12-11] MEDS ORDERED: predniSONE 5 MG TAB PO SCH (09:00)
--- NOTE | 2023-12-11 10:21 | P.PN ---
Subjective Date of Service: 12/11/23 Chief Complaint: Abdominal pain, nausea vomiting Pt is resting comfortably in bed. Pt is passing gas and she had BM this am. She had barium contrast study yeaterday. Waiting for Gen surgery recommendation. No other complaints. Review of Systems General: Unremarkable Eyes: Unremarkable ENT: Unremarkable Respiratory: Unremarkable Cardiovascular: Unremarkable Gastrointestinal: Unremarkable Genitourinary: Unremarkable Musculoskeletal: Unremarkable Integumentary: Unremarkable Neurological: Unremarkable Lymphatics: Unremarkable Physical Examination - Vital Signs Temperature: 97.1 F Blood Pressure: 117/63 Pulse: 55 Respirations: 16 Pulse Ox (%): 95 - Physical Exam General: Alert, In no apparent distress, Oriented x3, Obese HEENT: Atraumatic, Normocephalic, PERRLA Neck: Supple, 2+ carotid pulse no bruit Respiratory: Clear to auscultation bilaterally, Normal air movement Cardiovascular: No edema, Normal pulses, Regular rate/rhythm, Normal S1 S2 Capillary refill: <2 Seconds Gastrointestinal: Normal bowel sounds, Soft and benign, Non-distended Musculoskeletal: No clubbing, No swelling Integumentary: No rashes, No breakdown, No significant lesion Neurological: Normal gait, Normal speech, Normal strength at 5/5 x4 extr Lymphatics: No axilla or inguinal lymphadenopathy Assessment And Plan - Plan SBO: Pt is NPO. CT barium contrast shows mildly dilated small bowel lobes the central abdomen likely indicating mild mechanical small-bowel obstruction. Waiting for Gen surgery recommendation. Pt is passing gas and also had BM this am. Will f/u kUB Hypocalcemia: Calcium is 6.8, Albumin is 2.7. Vitamin D is 41.4. Will check ionized calcium. Pt [id number] calcium gluconate. Peripheral vascular disease: will resume aspirin and Lipitor once bowel obstruction improved and oral intake resumed. Rheumatoid arthritis: Hold oral medications until bowel obstruction resolve. HLD: Will resume statin later. DVT prophylaxis: Heparin SQ.
--- NOTE | 2023-12-11 11:16 | RAD REPORT ---
EXAM DESCRIPTION: RAD - Abdomen 1 View (KUB) - 12/11/2023 11:11 am CLINICAL HISTORY: Abdomen pain FINDINGS: Contrast is present within the colon. There are several mildly dilated loops small bowel without significant change from December 09, 2023. Th is probably represents an ileus. A mild partial obstruction can also have this appearance.
[2023-12-11 13:03] VITALS: BP 120/56; TEMP 97.8
--- NOTE | 2023-12-11 13:52 | P.DS ---
Admission Date: 12/09/23 Discharge Date: 12/11/23 Disposition: ROUTINE DISCHARGE Discharge Condition: GOOD Reason for Admission: Abdominal pain, nausea vomiting Brief History of Present Illness: 63-year-old male with a history of rheumatoid arthritis, peripheral vascular disease status post multiple vascular surgeries including laparotomy with abdominal aortic surgery presented to the emergency department with a complaint of several bouts of vomiting along with abdominal pain. Patient denies any constipation. CT abdomen and pelvis done in the emergency department demonstrated small bowel obstruction. Also noted significant stool burden. Surgery Dr. Krueger was contacted who recommended repeat CT scan with barium contrast. Patient has not vomited since presentation to the ED. She is hospitalized for further management. Hospital Course: Pt is a 63yo female with past medical history of rheumatoid arthritis and peripheral vascular disease status post multiple vascular surgeries including laparotomy with abdominal aortic surgery who presented with abdominal pain and vomiting for vomiting. On admission, CT abd showed small bowel obstruction with significant stool burden. Gen surgeon, Dr. Krueger, was consulted and he recommended repeat CT scan with barium contrast. We admitted pt for SBO. Dr. Krueger evaluated pt but did not recommend any surgical intervention. We gave her mineral oil and pt had massive bowel movement. The SBO resolved and pt tolerated diet. We also repleted calcium and continued home med for other chronic medical problems. Pt was advised to lose weight. She was in NAD prior to discharge. Vital Signs/Physical Exam: Temp Pulse Resp BP Pulse Ox 97.8 F 53 15 120/56 L 95 12/11/23 12:00 12/11/23 12:00 12/11/23 12:00 12/11/23 12:00 12/11/23 12:00 Laboratory Data at Discharge: WBC 9.60 thou/uL (4.3-10.9) 12/10/23 03:35 Hgb 11.5 g/dL (12.0-15.0) L D 12/10/23 03:35 Hct 34.8 % (36.0-45.0) L 12/10/23 03:35 Plt Count 204 thou/uL (152-406) 12/10/23 03:35 Sodium 142 mEq/L (136-145) 12/11/23 03:41 Potassium 4.0 mEq/L (3.5-5.1) 12/11/23 03:41 BUN 11 mg/dL (7-18) 12/11/23 03:41 Creatinine 0.74 mg/dL (0.55-1.02) 12/11/23 03:41 Glucose 117 mg/dL (74-106) H 12/11/23 03:41 Phosphorus 5.4 mg/dL (2.5-4.9) H 12/10/23 03:35 Magnesium 1.8 mg/dL (1.6-2.4) 12/10/23 03:35 Total Bilirubin 0.6 mg/dL (0.2-1.0) 12/10/23 03:35 AST 23 U/L (15-37) 12/10/23 03:35 ALT 16 U/L (13-56) 12/10/23 03:35 Alkaline Phosphatase 85 U/L (45-117) D 12/10/23 03:35 Lipase 15 U/L (13-75) 12/09/23 15:58 Home Medications: Aspirin [Aspirin EC 81 MG] 81 mg PO DAILY 12/10/23 Clopidogrel Bisulfate [Plavix] 75 mg PO DAILY 12/10/23 Etanercept [Enbrel] 50 mg SQ Q7D 12/10/23 Folic Acid 1 mg PO DAILY 12/10/23 Gabapentin [Neurontin*] 100 mg PO DAILY 12/10/23 Levothyroxine Sodium [Euthyrox] 150 mcg PO DAILY 12/10/23 Lisinopril [Zestril] 5 mg PO DAILY 12/10/23 Meloxicam 15 mg PO DAILY 12/10/23 Methotrexate [Methotrexate*] 2.5 mg PO Q7D 12/10/23 predniSONE [Prednisone] 5 mg PO DAILY 12/10/23 Physician Discharge Instructions: Continue ad jerica activity. Take home meds as prescribed. Follow up with PCP roberta koroma 1 - 2 weeks. Diet: AHA Activity: Ad jerica Followup: Raina Alves DO, DO [Primary Care Provider] -
[2023-12-11 16:24] VITALS: O2SAT 95
[2023-12-11] MEDS ORDERED: GABAPENTIN 100 MG CAP PO SCH (21:00)
== END 2023-12-11 17:20 | disposition home or self-care (01) ==
LOC: ER 15:05 → 2ND 21:00
PROVIDERS: ADMIT Internal Medicine; ATTEND Hospitalist
DX: K56.609 Unspecified intestinal obstruction, unspecified as to partial versus complete obstruction (principal); R10.9 Unspecified abdominal pain; R11.2 Nausea with vomiting, unspecified; I73.9 Peripheral vascular disease, unspecified; M06.9 Rheumatoid arthritis, unspecified; E83.51 Hypocalcemia; E78.5 Hyperlipidemia, unspecified; Z98.890 Other specified postprocedural states; Z71.3 Dietary counseling and surveillance; Z88.8 Allergy status to other drugs, medicaments and biological substances
CPT/HCPCS: 96361; 85025 ×2; 81001; 80048; 36415 ×2; 83735; 84100; 83690; 80053 ×2; 82306; 82330; 74176 ×2; 74018; 94760 ×3; 96375; 96374; 99285; J1644 ×3; J7512; J3475; J0612 ×2; J1200; J3010; J2405; J0744 ×3; J7030; G0378